=== PATIENT | male | born 1960 | race Caucasian/White ===

== ENCOUNTER 2016-08-19 16:00 | Inpatient (IN) | payer MEDICAID, OTHER ==
[2016-08-19] VITALS (13 sets, daily range): BP systolic 82–138; BP diastolic 66–98; PULSE 101–115; RESP 20; TEMP 96.2–97.8; O2SAT 85–100
[~2016-08-19] VITALS: Ht 152.4 cm; Wt 62.6 kg
[~2016-08-19 16:00] MED LIST: ADVAI250I PO; ALBU8I INH; LEVA750T PO; LISI5 PO; MAGN400 PO; METO25 PO; PRED10 PO; THIA100T PO
[2016-08-19] MEDS ORDERED: SODIUM CHLORIDE 0.9% FLUSH 10 ML FLUSH IVF PRN (16:15)
[2016-08-19] MEDS ORDERED: methylPREDNISolone SOD SUCC 125 MG/2 ML VIAL IVP ONE (16:15)
[2016-08-19] MEDS: RESP: ALBUTEROL 2.5 MG/IPRATROPIUM 0.5 MG NEB (SCH) INH (16:22)
[2016-08-19 16:25] LABS: BASOPHIL # 0.2 TH/MM3 (0-0.2); BASOPHIL % 2.1 % (0.0-2.0); EOSINOPHIL # 0.2 TH/MM3 (0-0.4); EOSINOPHIL % 2.3 % (0.0-4.0); HEMATOCRIT 46.2 % (39.0-51.0); LYMPH % 21.7 % (9.0-44.0); MEAN CELL VOLUME 93.8 FL (80.0-100.0); MEAN CORPUSCULAR HEMOGLOBIN 30.3 PG (27.0-34.0); MEAN CORPUSCULAR HGB CONC 32.3 % (32.0-36.0); MONO % 10.1 % (0.0-8.0); NEUT % 63.8 % (16.0-70.0); PLATELET COUNT 222 TH/MM3 (150-450); RED BLOOD COUNT 4.93 MIL/MM3 (4.50-5.90); RED CELL DISTRIBUTION WIDTH 15.5 % (11.6-17.2); WHITE BLOOD COUNT 9.3 TH/MM3 (4.0-11.0)
[2016-08-19 16:26] LABS: HEMO FLAGS DIFF FINAL
[2016-08-19] MEDS ORDERED: SODIUM CHLOR 0.9% 1000 ML INJ 1,000 ML IV ONE (16:30)
[2016-08-19 16:37] LABS: CHLORIDE 85 MEQ/L (98-107); POTASSIUM 3.8 MEQ/L (3.5-5.1); SODIUM (NA) 127 MEQ/L (136-145)
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
[2016-08-19 16:40] LABS: ANION GAP 10 MEQ/L (5-15); BICARBONATE 32.4 MEQ/L (21.0-32.0); BLOOD UREA NITROGEN 8 MG/DL (7-18); MAGNESIUM 1.3 MG/DL (1.5-2.5)
[2016-08-19 16:43] LABS: ALT (GPT) 119 U/L (12-78); AST (GOT) 49 U/L (15-37); GLOMERULAR FILTRATION RATE 163 ML/MIN (>89)
[2016-08-19 16:44] LABS: APTT (PATIENT) 28.4 SEC (24.3-30.1); INTERNATIONAL NORMALIZED RATIO 1.2 RATIO
[2016-08-19 16:45] LABS: TOTAL BILIRUBIN ADULT 0.7 MG/DL (0.2-1.0)
[2016-08-19 16:46] LABS: ALKALINE PHOSPHATASE 87 U/L (45-117); CREATINE KINASE 131 U/L (39-308)
[2016-08-19 16:51] LABS: BLOOD GAS BASE EXCESS 4.9 mmol/L (-2-2); BLOOD GAS CARBOXYHEMOGLOBIN 7.8 % (0-4); BLOOD GAS HCO3 30 mmol/L (22-26); BLOOD GAS METHEMOGLOBIN 0.9 % (0-2); BLOOD GAS O2 HGB SATURATION 75 % (90-100); BLOOD GAS OXYGEN CONTENT 14.5 Vol % (12.0-20.0); BLOOD GAS PCO2 58 mmHG (38-42); BLOOD GAS PO2 55 mmHG (61-120); BLOOD GAS TOTAL HGB 13.7 G/DL (12.0-16.0); CRITICAL VALUE YES; FIO2 21 %; OXYGEN DEVICE ROOM AIR; TEMP CORR TO 98.6
[2016-08-19 16:52] LABS: DRAW SITE LT BRACHIAL; NUMBER OF ARTERIAL PUNCTURES 2; STAT YES; ULNAR PULSE PRESENT
[2016-08-19 16:58] LABS: CKMB 3.7 NG/ML (0.5-3.6)
[2016-08-19 17:11] LABS: BLOOD, URINE NEG (NEG); GLUCOSE,URINE NEG (NEG); KETONE, URINE NEG (NEG); NITRITE,URINE NEG (NEG)
[2016-08-19 17:15] LABS: URINE COLOR YELLOW (YELLW/STRAW)
[2016-08-19 17:17] LABS: WBC, URINE 0-2 /hpf (0-5)
[2016-08-19 17:18] LABS: COMMENT (UR) CULT NOT INDICATED; CULTURE IF INDICATED CULT NOT INDICATED; SQUAMOUS EPITHELIAL CELL URINE 0-5 /hpf (0-5)
[2016-08-19 17:19] LABS: AMPHETAMINE, URINE NEG (NEG); BARBITURATES, URINE NEG (NEG); COCAINE, URINE NEG (NEG)
[2016-08-19] MEDS ORDERED: ASPIRIN 81 MG CHEW TAB PO ONE (17:45)
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
[2016-08-19] MEDS ORDERED: IOHEXOL 350 MG/ML 10 ML VIAL (for RAD DIAG) IV ONE (17:57)
--- NOTE | 2016-08-19 18:09 | RADHPO ---
EXAM DATE/TIME: 08/19/2016 17:40 [facility] COMPARISON: No previous studies available for comparison. INDICATIONS : Dyspnea. Bilateral lower extremity edema. Evaluate for pulmonary embolism. IV CONTRAST: 65 cc Omnipaque 350 (iohexol) IV RADIATION DOSE: 8.31 CTDIvol (mGy) MEDICAL HISTORY : Chronic obstructive pulmonary disease. SURGICAL HISTORY : None. ENCOUNTER: Initial ACUITY: 4 - 6 days PAIN SCALE: 0/10 LOCATION: chest TECHNIQUE: Volumetric scanning of the chest was performed using a pulmonary embolism protocol MIP images were re constructed. Using automated exposure control and adjustment of the mA and/or kV according to patien t size, radiation dose was kept as low as reasonably achievable to obtain optimal diagnostic quality images. FINDINGS: PULMONARY ARTERIES: No filling defects are seen in the pulmonary arteries through the segmental level. LUNGS: Severe baseline bullous emphysema. Patchy reticular interstitial disease and areas of pleural-parench ymal scarring. Mild basilar atelectasis. PLEURAE: Small bilateral pleural effusions. MEDIASTINUM: There is good visualization of the great vessels of the middle mediastinum. No evidence of mediastin al or hilar adenopathy/mass. MUSCULOSKELETAL: Within normal limits for patient age. MISCELLANEOUS: The visualized upper abdominal organs demonstrate no acute abnormality. CONCLUSION: No evidence of pulmonary embolism Patrick Gimenez MD on August 19, 2016 at 18:00 Board Certified Radiologist. This report was verified electronically.
--- NOTE | 2016-08-19 18:23 | RADHPO ---
EXAM DATE/TIME: 08/19/2016 17:54 [facility] COMPARISON: CHEST SINGLE AP, January 25, 2015, 18:44. INDICATIONS : Shortness of breath. Productive cough. MEDICAL HISTORY : Chronic obstructive pulmonary disease. Smoker. SURGICAL HISTORY : None. ENCOUNTER: Initial ACUITY: 3 days PAIN SCORE: 0/10 LOCATION: Bilateral chest FINDINGS: The heart size is normal. There does appear to be chronic linear density seen in the u pper lungs bilaterally. This is stable. No focal consolidation is seen. A significant effusion is no t seen. The bony structures are grossly intact. CONCLUSION: No acute abnormality is seen. There does appear to be chronic linear density in the u pper lungs. Patrick Ramos MD on August 19, 2016 at 18:10 Board Certified Radiologist. This report was verified electronically.
[2016-08-19] MEDS ORDERED: cefTRIAXone INJ 1,000 MG in SODIUM CHLORIDE 0.9% INJ 100 ML IV ONE (18:30)
[2016-08-19] MEDS ORDERED: NALOXONE HCL 0.4 MG/ML AMP IV PRN (18:45)
[2016-08-19] MEDS ORDERED: ACETAMINOPHEN 325 MG TAB PO PRN ×2 (18:45)
[2016-08-19] MEDS ORDERED: SODIUM CHLORIDE 0.9% FLUSH 10 ML FLUSH IV FLUSH PRN (18:45)
[2016-08-19] MEDS ORDERED: FLUMAZENIL 0.5 MG/5 ML VIAL IV PUSH PRN (19:00)
[2016-08-19] MEDS ORDERED: LORazepam 2 MG TAB PO PRN (19:00)
[2016-08-19] MEDS ORDERED: LORazepam 1 MG TAB PO PRN (19:00)
[2016-08-19] MEDS ORDERED: FUROSEMIDE 40 MG/4 ML VIAL IV PUSH ONE (19:00)
[2016-08-19] MEDS ORDERED: LORazepam 2 MG/ML VIAL IV PUSH PRN ×2 (19:00)
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
[2016-08-19] MEDS: AZITHROMYCIN INJ 500 MG in SODIUM CHLOR 0.9% 250 ML INJ 250 ML IV SCH (19:31)
[2016-08-19] MEDS: MAGNESIUM SULFATE 1 GM PREMIX 100 ML IV SCH ×2 (19:42→20:53)
[2016-08-19] MEDS: THIAMINE HCL 100 MG TAB PO SCH (19:47)
[2016-08-19] MEDS: ENOXAPARIN SODIUM 40 MG/0.4 ML SYRINGE SQ SCH (19:47)
[2016-08-19] MEDS: FOLIC ACID 1 MG TAB PO SCH (19:47)
[2016-08-19] MEDS: MULTIVITAMIN TAB PO SCH (19:47)
[2016-08-19 22:00] LABS: CHLORIDE 87 MEQ/L (98-107); POTASSIUM 3.1 MEQ/L (3.5-5.1); SODIUM (NA) 131 MEQ/L (136-145)
[2016-08-19 22:03] LABS: ANION GAP 9 MEQ/L (5-15); BICARBONATE 35.1 MEQ/L (21.0-32.0); BLOOD UREA NITROGEN 6 MG/DL (7-18)
[2016-08-19 22:06] LABS: GLOMERULAR FILTRATION RATE 150 ML/MIN (>89)
[2016-08-19] MEDS: methylPREDNISolone SOD SUCC 40 MG/1 ML VIAL IV PUSH SCH (22:08)
[2016-08-19] MEDS: SODIUM CHLORIDE 0.9% FLUSH 10 ML FLUSH IV FLUSH SCH (22:08)
[2016-08-19 22:50] LABS: HDL CHOLESTEROL 68.8 MG/DL (40.0-60.0); LDL CHOLESTEROL 66 MG/DL (0-99)
[2016-08-20] VITALS (8 sets, daily range): BP systolic 111–138; BP diastolic 78–102; PULSE 99–108; RESP 18–20; TEMP 96–97.4; O2SAT 89–98
[2016-08-20] MEDS: methylPREDNISolone SOD SUCC 40 MG/1 ML VIAL IV PUSH SCH ×2 (05:37→23:05)
[2016-08-20 06:05] LABS: AUTOMATED NEUTROPHIL # 1.8 TH/MM3 (1.8-7.7); BASOPHIL % 0.8 % (0.0-2.0); EOSINOPHIL % 0.9 % (0.0-4.0); HEMATOCRIT 48.1 % (39.0-51.0); HEMO FLAGS DIFF FINAL; LYMPH % 14.9 % (9.0-44.0); LYMPHOCYTE # 0.4 TH/MM3 (1.0-4.8); MEAN CELL VOLUME 94.3 FL (80.0-100.0); MEAN CORPUSCULAR HEMOGLOBIN 30.4 PG (27.0-34.0); MEAN CORPUSCULAR HGB CONC 32.2 % (32.0-36.0); MONO % 2.4 % (0.0-8.0); PLATELET COUNT 191 TH/MM3 (150-450); RED CELL DISTRIBUTION WIDTH 15.1 % (11.6-17.2); WHITE BLOOD COUNT 2.4 TH/MM3 (4.0-11.0)
[2016-08-20 06:13] LABS: CHLORIDE 88 MEQ/L (98-107); POTASSIUM 3.8 MEQ/L (3.5-5.1); SODIUM (NA) 133 MEQ/L (136-145)
[2016-08-20 06:18] LABS: ANION GAP 8 MEQ/L (5-15); BICARBONATE 37.2 MEQ/L (21.0-32.0); BLOOD UREA NITROGEN 8 MG/DL (7-18); MAGNESIUM 1.4 MG/DL (1.5-2.5)
[2016-08-20 06:21] LABS: ALT (GPT) 110 U/L (12-78); AST (GOT) 38 U/L (15-37); GLOMERULAR FILTRATION RATE 110 ML/MIN (>89)
[2016-08-20 06:23] LABS: TOTAL BILIRUBIN ADULT 0.6 MG/DL (0.2-1.0)
[2016-08-20 06:24] LABS: ALKALINE PHOSPHATASE 96 U/L (45-117)
[2016-08-20] MEDS: RESP: ALBUTEROL 2.5 MG/IPRATROPIUM 0.5 MG NEB (PRN) NEB ×3 (07:29→19:43)
[2016-08-20 08:04] LABS: HEMOGLOBIN A1a 1.5 %; HEMOGLOBIN A1b 1.5 %; HEMOGLOBIN Ao 84.4 %; HEMOGLOBIN LA1C 2.2 %; HEMOGLOBIN P3 5.2 %
--- NOTE | 2016-08-20 08:08 | MB ---
cc: ARTURO BELL MD DATE OF CONSULTATION: 08/20/2016 REASON FOR CONSULTATION CHF and elevated troponin. HISTORY OF PRESENT ILLNESS The patient is a pleasant 56-year-old gentleman who denies any cardiac history though from the chart I do see an echocardiogram from July 2014 showing a reduced ejection fraction of 30-35%. The patient presented with several days of bilateral lower extremity edema as well as pain. He was felt to be in clinical congestive heart failure and thus admitted. The patient has been given diuretics and is feeling somewhat better. He denies any particular shortness of breath though he does admit to fairly heavy tobacco use. He denies any chest pain now or previously, no lightheadedness, dizziness or syncope. PAST MEDICAL HISTORY 1. Apparent cardiomyopathy by echocardiogram July 2014 with an ejection fraction of 30-35% at that time. 2. Tobacco abuse. 3. Alcohol abuse. 4. Seizure disorder. MEDICATIONS Current medications: 1. Levaquin. 2. Lasix 20 mg IV b.i.d. 3. Solu-Medrol. 4. Lovenox 40 mg subcu q.24h. 5. Thiamine. 6. Folate. 7. Azithromycin. ALLERGIES No known drug allergies. PHYSICAL EXAMINATION VITAL SIGNS: Afebrile. Pulse 99, respiratory rate 20, BP 138/102, satting 92 on 2 liters. GENERAL: In general a pleasant, somewhat disheveled-appearing gentleman in no distress. NECK: No JVD. LUNGS: Decreased breath sounds in all garrison with scattered wheezes. CARDIOVASCULAR: Distant heart sounds. Regular rate and rhythm. No significant murmurs appreciated. ABDOMEN: Benign. EXTREMITIES: Trace to 1+ edema bilaterally. LABORATORY DATA White count 2.4, hematocrit 48.1, platelets 191. Sodium 133, potassium 3.8, chloride 88, bicarb 37.2, BUN 8, creatinine 0.73, glucose 195. Troponin 0.10. BNP is 2624. D-dimer was elevated. Ethyl alcohol was 225. IMAGING CTA of the chest showed no evidence of pulmonary embolism. EKG EKG shows sinus tachycardia with anterolateral T-wave changes possibly due to ischemia. IMPRESSION CHF. Patient with an apparently previously documented cardiomyopathy, presents with an acute on chronic systolic CHF exacerbation complicated by ongoing alcohol use. He does not appear particularly decompensated at this time following initial diuresis. I will increase his IV diuretics slightly to 40 mg IV b.i.d. for the next day or so. Will repeat an echocardiogram to see if his ejection fraction has changed over the last couple of years and get a nuclear stress test to evaluate for any signs of ischemia given his abnormal EKG, though certainly he may have an alcoholic/nonischemic cardiomyopathy. I will begin him on low-dose carvedilol and lisinopril as well given the presumed reduced ejection fraction seen previously. The elevated troponin is an expected finding in congestive heart failure and is not consistent with acute coronary syndrome in the absence chest pain, but I will have him undergo the nuclear stress test as detailed above. Further recommendations based on the above testing. Thank you again for the opportunity to participate in this patient's care. MD HEVER Kramer/DELORES /7:46 AM :55 AM
--- NOTE | 2016-08-20 08:53 | EKG ---
Date Performed: 08/19/2016 Time Performed: 16:13:04 PTAGE: 56 years EKG: Sinus tachycardia Right axis deviation Right ventricular hypertrophy Septal T wave changes may be due to hypertrophy and/or ischemia Abnormal ECG PREVIOUS TRACING : 01/16/2015 19.37 DOCTOR: Umer Toussaint Interpretating Date/Time 08/20/2016 08:50:55
[2016-08-20] MEDS ORDERED: FUROSEMIDE 20 MG/2 ML VIAL IV PUSH SCH (09:00)
[2016-08-20] MEDS: LISINOPRIL 5 MG TAB PO SCH (09:52)
[2016-08-20] MEDS: THIAMINE HCL 100 MG TAB PO SCH (09:52)
[2016-08-20] MEDS: MULTIVITAMIN TAB PO SCH (09:52)
[2016-08-20] MEDS: FOLIC ACID 1 MG TAB PO SCH (09:52)
[2016-08-20] MEDS: CARVEDILOL 3.125 MG TAB PO SCH ×2 (09:53→23:05)
[2016-08-20] MEDS: SODIUM CHLORIDE 0.9% FLUSH 10 ML FLUSH IV FLUSH SCH ×2 (09:53→21:00)
[2016-08-20] MEDS: FUROSEMIDE 20 MG/2 ML VIAL IV PUSH SCH ×2 (09:54→18:45)
[2016-08-20] MEDS ORDERED: POTASSIUM CHLORIDE 25 MEQ EFFERVESCENT TAB PO ONE (10:15)
--- NOTE | 2016-08-20 10:27 | HHI.PR ---
Subjective Remarks The patient says he feels a little bit better. He says the breathing treatment might have helped. He wanted to eat something. He was unsure why he was not able to eat. He did not know he was going for a stress test. Objective Vitals Vital Signs Date Time Temp Pulse Resp B/P Pulse Ox O2 Delivery O2 Flow Rate FiO2 08/20/16 08:38 96.2 107 18 129/94 90 08/20/16 07:31 92 21 08/20/16 04:00 97.4 99 20 138/102 98 Automatic Cuff 08/19/16 22:00 94 Nasal Cannula 2.00 08/19/16 21:56 100 Nasal Cannula 2.00 08/19/16 21:30 96.2 101 20 134/95 100 08/19/16 20:59 100 Nasal Cannula 2 08/19/16 20:28 97 Nasal Cannula 3.00 08/19/16 19:19 108 138/98 100 Nasal Cannula 2 08/19/16 17:02 96 High Flow Nasal Cannula 2.00 08/19/16 17:02 106 20 112/81 96 Nasal Cannula 2 08/19/16 16:47 106 20 107/78 99 Nasal Cannula 2 08/19/16 16:45 85 21 08/19/16 16:44 108 20 88/71 96 Nasal Cannula 2 08/19/16 16:41 97.7 109 20 98/76 96 Nasal Cannula 2 08/19/16 16:32 112 20 89/76 93 Nasal Cannula 2 08/19/16 16:18 114 20 87/76 96 Nasal Cannula 2 08/19/16 16:13 95 Nasal Cannula 2 08/19/16 16:13 95 Nasal Cannula 2 08/19/16 16:07 20 95 Nasal Cannula 2 08/19/16 16:05 97.8 115 20 82/66 95 I/O 08/19/16 08/19/16 08/19/16 08/20/16 08/20/16 08/20/16 07:00 15:00 23:00 07:00 15:00 23:00 Intake Total 450 ml 240 ml Output Total 550 ml Balance -100 ml 240 ml Intake Oral 240 ml IV Total 450 ml Output Urine Total 550 ml # Voids 2 1 # Bowel Movements 0 Result Diagram: 08/20/16 0530 08/20/[address] Angiography 08/19/16 1656 Signed Impressions: Service Date/Time: Friday, August 19, 2016 17:40 - CONCLUSION: No evidence of pulmonary embolism Patrick Gimenez MD Chest X-Ray 08/19/16 1610 Signed Impressions: Service Date/Time: Friday, August 19, 2016 17:54 - CONCLUSION: No acute abnormality is seen. There does appear to be chronic linear density in the upper lungs. Patrick Ramos MD Lower Extremity Ultrasound 08/19/16 0000 Signed Impressions: Service Date/Time: Friday, August 19, 2016 17:20 - CONCLUSION: Normal examination. Patrick Gimenez MD Objective Remarks GENERAL: No apparent distress, appears much older than stated age. SKIN: Focused skin assessment warm/dry. HEAD: Atraumatic. Normocephalic. EYES: Pupils equal and round. No scleral icterus. No injection or drainage. ENT: No nasal bleeding or discharge. Mucous membranes pink and moist. NECK: Trachea midline. No JVD. CARDIOVASCULAR: Tachycardic. No murmur appreciated. RESPIRATORY: Patient with diffuse wheezing, improved. GASTROINTESTINAL: Abdomen soft, slightly tender, nondistended. Hepatic and splenic margins not palpable. MUSCULOSKELETAL: No obvious deformities. No clubbing. No cyanosis. Patient with 1-2+ pedal edema. Pedal pulses intact. NEUROLOGICAL: Awake and alert. No obvious cranial nerve deficits. Motor grossly within normal limits. Normal speech. PSYCHIATRIC: Appropriate mood and affect; insight and judgment normal. Medications and IVs Current Medications Medications (Trade) Dose Ordered Sig/Missy Route Start Time Stop Time Status Last Admin (Zithromax Inj/ NS 250 ml Inj) 250 ml @ 250 mls/hr Q24H IV 08/19/16 18:30 08/19/16 19:31 (NS Flush) 2 ml UNSCH PRN IV FLUSH 08/19/16 18:45 (NS Flush) 2 ml BID IV FLUSH 08/19/16 21:00 08/20/16 09:53 (Tylenol) 650 mg Q4H PRN PO 08/19/16 18:45 08/20/16 05:51 (Tylenol) 650 mg Q6H PRN PO 08/19/16 18:45 (Narcan Inj) 0.4 mg UNSCH PRN IV 08/19/16 18:45 (Romazicon Inj) 0.2 mg Q1M PRN IV PUSH 08/19/16 19:00 (Ativan) 1 mg Q4H PRN PO 08/19/16 19:00 (Ativan) 2 mg Q2H PRN PO 08/19/16 19:00 (Ativan Inj) 2 mg Q1H PRN IV PUSH 08/19/16 19:00 (Ativan Inj) 2 mg Q15M PRN IV PUSH 08/19/16 19:00 (Vitamin B1) 100 mg DAILY PO 08/19/16 19:00 08/20/16 09:52 (Folate) 1 mg DAILY PO 08/19/16 19:00 08/20/16 09:52 (Theragran) 1 tab DAILY PO 08/19/16 19:00 08/20/16 09:52 (Lovenox Inj) 40 mg Q24H SQ 08/19/16 20:00 08/19/16 19:47 Methylprednisolone Sodium Succinate 40 mg 40 mg Q8HR IV PUSH 08/19/16 22:00 08/20/16 05:37 (Levaquin 750 Mg Premix Inj) 150 ml @ 100 mls/hr Q24H IV 08/20/16 17:00 (Lasix Inj) 40 mg BID@09,18 IV PUSH 08/20/16 09:00 08/20/16 09:54 (Coreg) 3.125 mg Q12HR PO 08/20/16 09:00 08/20/16 09:53 (Prinivil) 5 mg DAILY PO 08/20/16 09:00 08/20/16 09:52 Potassium Bicarb/ Potassium Chloride 25 meq 25 meq ONCE ONCE PO 08/20/16 10:15 08/20/16 10:16 (Magnesium Sulfate 1 Gm Premix) 100 ml @ 100 mls/hr Q1H IV 08/20/16 10:15 08/20/16 12:14 A/P Assessment and Plan Acute CHF/ Elevated troponin The patient presents with lower extremity edema, abdominal distention and is found to have a BNP over 2000. Troponin peaked at 0.16. The patient denies chest pain or shortness of breath. Troponin elevation likely demand secondary to heart failure. EKG with tachycardia but no acute ischemia. Lower extremity duplex negative for DVT. Appreciate cardiology consultation. LDL was 66. - Diuresis with Lasix 40 mg IV twice a day. - Monitor on telemetry. - Check an echocardiogram. - Check a hemoglobin A1c. - stress test per cardiology. - Coreg and lisinopril was started. COPD The patient has been requiring oxygen in the emergency department. He continues to smoke heavily. CT of the chest without evidence of pulmonary embolism. He received antibiotics in the emergency department. - Oxygen and nebs as needed. - Incentive spirometry. - Encourage ambulation. - Physical therapy. - continue Solumedrol and Levaquin. - smoking cessation instruction. Hyponatremia Chronic. S/t alcohol intake and decreased PO intake. - diurese. - fluid restriction. - follow BMP. Improved. Alcohol abuse The pt drinks all day long. Has had alcohol withdrawal seizures x 4. - seizure precautions. - CIWA protocol. - cessation instruction. Hypomagnesemia Likely secondary to alcohol abuse and decreased by mouth intake of other foods. - Replete with magnesium sulfate. - Check phosphorus level. Leukopenia WBC count decreased significantly overnight. May be lab error. - repeat CBC. PPx: Lovenox. Discharge Planning Awaiting clinical improvement. Sunny Jerez DO August 20, 2016 10:27
[2016-08-20] MEDS ORDERED: REGADENOSON INJ 0.4 MG/5 ML SYR IV ONE (12:34)
[2016-08-20] MEDS: MAGNESIUM SULFATE 1 GM PREMIX 100 ML IV SCH ×2 (13:31→16:19)
--- NOTE | 2016-08-20 13:41 | RADHPO ---
EXAM DATE/TIME: 08/20/2016 11:57 [facility] COMPARISON: No previous studies available for comparison. INDICATIONS : Cardiomyopathy with two days of leg swelling. Abnormal EKG. Congestive heart failure. DOSE: 26.5 mCi Tc99m Myoview at stress. 8.6 mCi Tc99m Myoview at rest. 0.4 mg Lexiscan STRESS SYMPTOMS: None noted. EJECTION FRACTION: 37% MEDICAL HISTORY : Chronic obstructive pulmonary disease. SURGICAL HISTORY : None. ENCOUNTER: Initial ACUITY: 2 days PAIN SCALE: 5/10 LOCATION: chest Bilateral legs. TECHNIQUE: The patient underwent pharmacologic stress with infusion of prescribed dose. Continuous ECG tracing was monitored during stress. Gated SPECT imaging was performed after stress and conventional SPECT i maging was performed at rest. The examination was performed on a SPECT/CT scanner, both attenuation and non-corrected datasets were reviewed. FINDINGS: DISTRIBUTION: The maximum perfused segment at stress is in the lateral wall. PERFUSION STUDY: The pattern of perfusion at stress is within normal limits. GATED STUDY: There is intact wall motion and thickening without hypokinetic or dyskinetic segments. CONCLUSION: No reversible perfusion defect to suggest stress-induced myocardial ischemia is identified. RISK CATEGORY: Low (<1% Annual Mortality Rate) Rudolph Park MD on August 20, 2016 at 13:38 Board Certified Radiologist. This report was verified electronically.
[2016-08-20 14:27] LABS: AUTOMATED NEUTROPHIL # 4.4 TH/MM3 (1.8-7.7); BASOPHIL # 0.1 TH/MM3 (0-0.2); BASOPHIL % 1.9 % (0.0-2.0); EOSINOPHIL % 0.6 % (0.0-4.0); LYMPH % 11.7 % (9.0-44.0); LYMPHOCYTE # 0.7 TH/MM3 (1.0-4.8); MEAN CELL VOLUME 94.1 FL (80.0-100.0); MEAN CORPUSCULAR HGB CONC 32.9 % (32.0-36.0); MONO % 8.4 % (0.0-8.0); NEUT % 77.4 % (16.0-70.0); PLATELET COUNT 191 TH/MM3 (150-450); RED CELL DISTRIBUTION WIDTH 15.3 % (11.6-17.2); WHITE BLOOD COUNT 5.7 TH/MM3 (4.0-11.0)
[2016-08-20 14:34] LABS: HEMO FLAGS DIFF FINAL
--- NOTE | 2016-08-20 16:48 | EC ---
Study Study Date:08/20/2016 STUDY CONCLUSIONS SUMMARY - Procedure narrative: Transthoracic echocardiography. Image quality was poor. Scanning was performed from the parasternal, apical, and subcostal acoustic windows. - Left ventricle: The cavity size was normal. Wall thickness was normal. Systolic function was normal. The estimated ejection fraction was in the range of 55% to 60%. Although no diagnostic regional wall motion abnormality was identified, this possibility cannot be completely excluded on the basis of this study. - Right ventricle: The cavity size was possibly mildly enlarged. Wall thickness was normal. Systolic function was low normal. - Right atrium: The atrium was possibly mild to moderately dilated. - Tricuspid valve: Trace to mild regurgitation. - Pulmonary arteries: PA peak pressure: 35mm Hg (S). If LV function is below 40, please consider prescribing an ACEI or ARB or document rationale for non-use. PROCEDURE DATA STUDY STATUS: Elective. Procedure: Transthoracic echocardiography. Image quality was poor. Scanning was performed from the parasternal, apical, and subcostal acoustic windows. Study completion: The patient tolerated the procedure well. Transthoracic echocardiography. M-mode, complete 2D, complete spectral Doppler, and color Doppler. Height: Height: 67in. Weight: Weight: 153.7lb. Body mass index: BMI: 24.1kg/m^2. Body surface area: BSA: 1.81m^2. Patient status: Inpatient. CARDIAC ANATOMY LEFT VENTRICLE: The cavity size was normal. Wall thickness was normal. Systolic function was normal. The estimated ejection fraction was in the range of 55% to 60%. Although no diagnostic regional wall motion abnormality was identified, this possibility cannot be completely excluded on the basis of this study. AORTIC VALVE: Trileaflet; normal thickness leaflets. Doppler: Transvalvular velocity was within the normal range. There was no stenosis. No regurgitation. Indexed valve area: 1.61cm^2/m^2 (Vmax). AORTA: Aortic root: The aortic root was normal in size. MITRAL VALVE: Structurally normal valve. Doppler: Transvalvular velocity was within the normal range. There was no evidence for stenosis. No regurgitation. LEFT ATRIUM: The atrium was normal in size. RIGHT VENTRICLE: The cavity size was possibly mildly enlarged. Wall thickness was normal. Systolic function was low normal. PULMONIC VALVE: Doppler: Transvalvular velocity was within the normal range. There was no evidence for stenosis. No regurgitation. TRICUSPID VALVE: Structurally normal valve. Doppler: Transvalvular velocity was within the normal range. Trace to mild regurgitation. PULMONARY ARTERY: The main pulmonary artery was normal-sized. RIGHT ATRIUM: The atrium was possibly mild to moderately dilated. PERICARDIUM: There was no pericardial effusion. SYSTEMIC VEINS: Inferior vena cava: The vessel was normal in size. Patient weight: 153.7lb _Ejection fraction:_ 65-75% _Fractional shortening:_ 32% up to 5Kg 5-11.5Kg 11.6-22.9Kg 23-45Kg 45-57Kg Aortic Root 7-13 <17 13-22 17-27 17-27 LA diam 6-13 <23 24-38 33-47 37-40 RVID 10-17 7-15 7-15 7-18 8-17 LVIDd 12-22 <32 24-38 33-47 37-40 LVPW 2-4 3-6 5-7 6-8 7-8 IVS 2-4 3-6 5-7 6-8 7-8 BASIC MEASUREMENTS ADULT NORMAL Left ventricle LV internal dimension, ED, chordal *41.2 mm 43-52 level, PLAX LV internal dimension, ES, chordal 35.3 mm 23-38 level, PLAX Fractional shortening, chordal level, *14 % >29 PLAX LV posterior wall thickness, ED 10.5 mm IVS/LVPW ratio, ED 1.12 <1.3 Ventricular septum Septal thickness, ED 11.8 mm Aortic valve Leaflet separation 21 mm 15-26 BASIC MEASUREMENTS ADULT NORMAL Aortic valve Leaflet separation 21 mm 15-26 Aorta Root diameter, ED 27 mm 20-37 Left atrium Anterior-posterior dimension, ES 35 mm 19-40 Anterior-posterior dimension index, ES 1.93 cm/m^2 <2.2 LA/aortic root ratio 1.3 DOPPLER MEASUREMENTS ADULT NORMAL Main pulmonary artery Pressure, S *35 mm Hg =30 Aortic valve Peak velocity, S 82.8 cm/s Valve area index, Vmax 1.61 cm^2/m^2 Tricuspid valve Regurgitant peak velocity 258 cm/s Peak RV-RA gradient, S 27 mm Hg Maximal regurgitant velocity 258 cm/s Systemic veins Estimated CVP 10 mm Hg Right ventricle RV pressure, S *37 mm Hg <30 Pulmonic valve Peak velocity, S 70.6 cm/s LEGEND: Mean values are shown as u=mean value. Asterisk (*) piña values outside specified normal range. Prepared and signed by Leoncio Lambert [id number]
[2016-08-20] MEDS: LEVOFLOXACIN 750 MG PREMIX INJ 150 ML IV SCH (18:41)
[2016-08-20] MEDS: AZITHROMYCIN INJ 500 MG in SODIUM CHLOR 0.9% 250 ML INJ 250 ML IV SCH (23:11)
[2016-08-20] MEDS: ENOXAPARIN SODIUM 40 MG/0.4 ML SYRINGE SQ SCH (23:12)
[2016-08-21] VITALS (8 sets, daily range): BP systolic 104–135; BP diastolic 76–100; PULSE 90–108; RESP 18–21; TEMP 95.8–98; O2SAT 94–100
[2016-08-21 06:47] LABS: HEMATOCRIT 43.1 % (39.0-51.0); MEAN CELL VOLUME 94.8 FL (80.0-100.0); MEAN CORPUSCULAR HEMOGLOBIN 31.3 PG (27.0-34.0); PLATELET COUNT 176 TH/MM3 (150-450); RED BLOOD COUNT 4.54 MIL/MM3 (4.50-5.90); RED CELL DISTRIBUTION WIDTH 15.4 % (11.6-17.2); REVIEW FLAG FINAL
[2016-08-21 06:53] LABS: POTASSIUM 3.9 MEQ/L (3.5-5.1)
[2016-08-21 06:58] LABS: BICARBONATE 40.9 MEQ/L (21.0-32.0); MAGNESIUM 1.3 MG/DL (1.5-2.5)
--- NOTE | 2016-08-21 07:50 | PD.CARD.PN ---
Subjective Subjective Remarks No cp/sob, legs improved. Objective Medications Administered Medications Medications (Trade) Dose Ordered Sig/Missy Route PRN Reason Start Time Stop Time Status Last Admin Dose Admin Azithromycin/ Sodium Chloride (Zithromax Inj/ NS 250 ml Inj) 250 ml @ 250 mls/hr Q24H IV 08/19/16 18:30 08/20/16 23:11 Sodium Chloride (NS Flush) 2 ml BID IV FLUSH 08/19/16 21:00 08/20/16 21:00 Acetaminophen (Tylenol) 650 mg Q4H PRN PO TEMP > 100.4 08/19/16 18:45 08/20/16 05:51 Thiamine HCl (Vitamin B1) 100 mg DAILY PO 08/19/16 19:00 08/20/16 09:52 Folic Acid (Folate) 1 mg DAILY PO 08/19/16 19:00 08/20/16 09:52 Multivitamins (Theragran) 1 tab DAILY PO 08/19/16 19:00 08/20/16 09:52 Enoxaparin Sodium 40 mg 40 mg Q24H SQ 08/19/16 20:00 08/20/16 23:12 Levofloxacin/ Dextrose (Levaquin 750 Mg Premix Inj) 150 ml @ 100 mls/hr Q24H IV 08/20/16 17:00 08/20/16 18:41 Furosemide (Lasix Inj) 40 mg BID@09,18 IV PUSH 08/20/16 09:00 08/20/16 18:45 Carvedilol (Coreg) 3.125 mg Q12HR PO 08/20/16 09:00 08/20/16 23:05 Lisinopril (Prinivil) 5 mg DAILY PO 08/20/16 09:00 08/20/16 09:52 Methylprednisolone Sodium Succinate (SoluMEDROL INJ) 40 mg BID IV PUSH 08/20/16 21:00 08/20/16 23:05 Vital Signs / I&O Vital Signs Date Time Temp Pulse Resp B/P Pulse Ox O2 Delivery O2 Flow Rate FiO2 08/21/16 04:00 96.9 96 20 130/100 97 Automatic Cuff 08/21/16 00:00 96.3 102 20 106/83 100 Manual Cuff/Auscultation 08/20/16 20:00 96.0 108 20 111/78 96 08/20/16 19:40 96 Nasal Cannula 2.00 08/20/16 16:26 96.3 105 18 127/90 91 08/20/16 16:08 94 Nasal Cannula 2.00 08/20/16 16:03 89 21 08/20/16 09:45 92 Nasal Cannula 2.00 08/20/16 08:38 96.2 107 18 129/94 90 I/O 08/20/16 08/20/16 08/20/16 08/21/16 08/21/16 08/21/16 07:00 15:00 23:00 07:00 15:00 23:00 Intake Total 240 ml 240 ml Balance 240 ml 240 ml Intake Oral 240 ml 240 ml # Voids 1 2 # Bowel Movements 0 0 Physical Exam GENERAL: This is a well-nourished, well-developed patient, in no apparent distress. CARDIOVASCULAR: Regular rate and rhythm without murmurs, gallops, or rubs. RESPIRATORY: Clear to auscultation. Breath sounds equal bilaterally. No wheezes , rales, or rhonchi. GASTROINTESTINAL: Abdomen soft, non-tender, nondistended. Normal active bowel sounds MUSCULOSKELETAL: Extremities without clubbing, cyanosis, or edema. NEURO: Alert & Oriented x4 to person, place, time, situation. Moves all ext x4 Laboratory Laboratory Tests Test 08/20/16 08/21/16 14:15 05:55 White Blood Count 5.7 TH/MM3 9.0 TH/MM3 Red Blood Count 5.00 MIL/MM3 4.54 MIL/MM3 Hemoglobin 15.5 GM/DL 14.2 GM/DL Hematocrit 47.0 % 43.1 % Mean Corpuscular Volume 94.1 FL 94.8 FL Mean Corpuscular Hemoglobin 31.0 PG 31.3 PG Mean Corpuscular Hemoglobin 32.9 % 33.0 % Concent Red Cell Distribution Width 15.3 % 15.4 % Platelet Count 191 TH/MM3 176 TH/MM3 Mean Platelet Volume 7.8 FL 7.7 FL Neutrophils (%) (Auto) 77.4 % Lymphocytes (%) (Auto) 11.7 % Monocytes (%) (Auto) 8.4 % Eosinophils (%) (Auto) 0.6 % Basophils (%) (Auto) 1.9 % Neutrophils # (Auto) 4.4 TH/MM3 Lymphocytes # (Auto) 0.7 TH/MM3 Monocytes # (Auto) 0.5 TH/MM3 Eosinophils # (Auto) 0.0 TH/MM3 Basophils # (Auto) 0.1 TH/MM3 CBC Comment DIFF FINAL Differential Comment Sodium Level 137 MEQ/L Potassium Level 3.9 MEQ/L Chloride Level 89 MEQ/L Carbon Dioxide Level 40.9 MEQ/L Anion Gap 7 MEQ/L Blood Urea Nitrogen 12 MG/DL Creatinine 0.59 MG/DL Estimat Glomerular Filtration 141 ML/MIN Rate Random Glucose 131 MG/DL Calcium Level 8.2 MG/DL Magnesium Level 1.3 MG/DL Imaging Last Impressions Myocardial Perfusion Scan Nuc Med 08/20/16 0000 Signed Impressions: Service Date/Time: Saturday, August 20, 2016 11:57 - CONCLUSION: No reversible perfusion defect to suggest stress-induced myocardial ischemia is identified. RISK CATEGORY: Low (<1%% Annual Mortality Rate) Rudolph Park MD CT Angiography 08/19/16 1656 Signed Impressions: Service Date/Time: Friday, August 19, 2016 17:40 - CONCLUSION: No evidence of pulmonary embolism Patrick Gimenez MD Chest X-Ray 08/19/16 1610 Signed Impressions: Service Date/Time: Friday, August 19, 2016 17:54 - CONCLUSION: No acute abnormality is seen. There does appear to be chronic linear density in the upper lungs. Patrick Ramos MD Lower Extremity Ultrasound 08/19/16 0000 Signed Impressions: Service Date/Time: Friday, August 19, 2016 17:20 - CONCLUSION: Normal examination. Patrick Gimenez MD Assessment and Plan Problem List: (1) Troponin level elevated Assessment and Plan: now s/p non-ischemic nuc stress, continue med mgt (2) Lower extremity edema Assessment and Plan: Improved, normal LVEF, changed IV lasix to low dose daily oral Assessment and Plan Doing well, will sign off at this time, please call with questions. Douglas Jones MD August 21, 2016 07:50
[2016-08-21] MEDS ORDERED: OXYGENTANK NAS.CANULA (08:53)
[2016-08-21] MEDS: THIAMINE HCL 100 MG TAB PO SCH (09:02)
[2016-08-21] MEDS: LISINOPRIL 5 MG TAB PO SCH (09:04)
[2016-08-21] MEDS: CARVEDILOL 3.125 MG TAB PO SCH (09:04)
[2016-08-21] MEDS: MULTIVITAMIN TAB PO SCH (09:04)
[2016-08-21] MEDS: FOLIC ACID 1 MG TAB PO SCH (09:04)
[2016-08-21] MEDS: POTASSIUM CHLORIDE 20 MEQ CONTROLLED RELEASE TAB PO SCH (09:04)
[2016-08-21] MEDS: FUROSEMIDE 20 MG TAB PO SCH (09:04)
[2016-08-21] MEDS: SODIUM CHLORIDE 0.9% FLUSH 10 ML FLUSH IV FLUSH SCH ×2 (09:05→20:29)
[2016-08-21] MEDS: methylPREDNISolone SOD SUCC 40 MG/1 ML VIAL IV PUSH SCH (09:05)
[2016-08-21] MEDS: MAGNESIUM SULFATE 1 GM PREMIX 100 ML IV SCH ×2 (09:08→10:32)
--- NOTE | 2016-08-21 09:44 | HHI.PR ---
Subjective Remarks The patient was resting in bed comfortably. He said that he has been coughing up mucus but that is chronic for him. He was breathing comfortably. He says his legs are less swollen but still somewhat tender. Objective Vitals Vital Signs Date Time Temp Pulse Resp B/P Pulse Ox O2 Delivery O2 Flow Rate FiO2 08/21/16 08:20 94 Nasal Cannula 2.00 08/21/16 04:00 96.9 96 20 130/100 97 Automatic Cuff 08/21/16 00:00 96.3 102 20 106/83 100 Manual Cuff/Auscultation 08/20/16 20:00 96.0 108 20 111/78 96 08/20/16 19:40 96 Nasal Cannula 2.00 08/20/16 16:26 96.3 105 18 127/90 91 08/20/16 16:08 94 Nasal Cannula 2.00 08/20/16 16:03 89 21 08/20/16 09:45 92 Nasal Cannula 2.00 I/O 08/20/16 08/20/16 08/20/16 08/21/16 08/21/16 08/21/16 07:00 15:00 23:00 07:00 15:00 23:00 Intake Total 240 ml 240 ml Balance 240 ml 240 ml Intake Oral 240 ml 240 ml # Voids 1 2 # Bowel Movements 0 0 Result Diagram: 08/21/16 0555 08/21/16 0555 Imaging Last Impressions Myocardial Perfusion Scan Nuc Med 08/20/16 0000 Signed Impressions: Service Date/Time: Saturday, August 20, 2016 11:57 - CONCLUSION: No reversible perfusion defect to suggest stress-induced myocardial ischemia is identified. RISK CATEGORY: Low (<1%% Annual Mortality Rate) Rudolph Park MD CT Angiography 08/19/16 1656 Signed Impressions: Service Date/Time: Friday, August 19, 2016 17:40 - CONCLUSION: No evidence of pulmonary embolism Patrick Gimenez MD Chest X-Ray 08/19/16 1610 Signed Impressions: Service Date/Time: Friday, August 19, 2016 17:54 - CONCLUSION: No acute abnormality is seen. There does appear to be chronic linear density in the upper lungs. Patrick Ramos MD Lower Extremity Ultrasound 08/19/16 0000 Signed Impressions: Service Date/Time: Friday, August 19, 2016 17:20 - CONCLUSION: Normal examination. Patrick Gimenez MD Objective Remarks GENERAL: No apparent distress, appears much older than stated age. SKIN: Focused skin assessment warm/dry. HEAD: Atraumatic. Normocephalic. EYES: Pupils equal and round. No scleral icterus. No injection or drainage. ENT: No nasal bleeding or discharge. Mucous membranes pink and moist. NECK: Trachea midline. No JVD. CARDIOVASCULAR: Tachycardic. No murmur appreciated. RESPIRATORY: Patient with diffuse wheezing, improved. GASTROINTESTINAL: Abdomen soft, slightly tender, nondistended. MUSCULOSKELETAL: No obvious deformities. No clubbing. No cyanosis. Patient with trace pedal edema. Pedal pulses intact. NEUROLOGICAL: Awake and alert. No obvious cranial nerve deficits. Motor grossly within normal limits. Normal speech. PSYCHIATRIC: Appropriate mood and affect; insight and judgment normal. Medications and IVs Current Medications Medications (Trade) Dose Ordered Sig/Missy Route Start Time Stop Time Status Last Admin (Zithromax Inj/ NS 250 ml Inj) 250 ml @ 250 mls/hr Q24H IV 08/19/16 18:30 08/20/16 23:11 (NS Flush) 2 ml UNSCH PRN IV FLUSH 08/19/16 18:45 (NS Flush) 2 ml BID IV FLUSH 08/19/16 21:00 08/21/16 09:05 (Tylenol) 650 mg Q4H PRN PO 08/19/16 18:45 08/20/16 05:51 (Tylenol) 650 mg Q6H PRN PO 08/19/16 18:45 (Narcan Inj) 0.4 mg UNSCH PRN IV 08/19/16 18:45 (Romazicon Inj) 0.2 mg Q1M PRN IV PUSH 08/19/16 19:00 (Ativan) 1 mg Q4H PRN PO 08/19/16 19:00 (Ativan) 2 mg Q2H PRN PO 08/19/16 19:00 (Ativan Inj) 2 mg Q1H PRN IV PUSH 08/19/16 19:00 (Ativan Inj) 2 mg Q15M PRN IV PUSH 08/19/16 19:00 (Vitamin B1) 100 mg DAILY PO 08/19/16 19:00 08/21/16 09:02 (Folate) 1 mg DAILY PO 08/19/16 19:00 08/21/16 09:04 (Theragran) 1 tab DAILY PO 08/19/16 19:00 08/21/16 09:04 Enoxaparin Sodium 40 mg 40 mg Q24H SQ 08/19/16 20:00 08/20/16 23:12 (Levaquin 750 Mg Premix Inj) 150 ml @ 100 mls/hr Q24H IV 08/20/16 17:00 08/20/16 18:41 (Coreg) 3.125 mg Q12HR PO 08/20/16 09:00 08/21/16 09:04 (Prinivil) 5 mg DAILY PO 08/20/16 09:00 08/21/16 09:04 (SoluMEDROL INJ) 40 mg BID IV PUSH 08/20/16 21:00 08/21/16 09:05 (Lasix) 20 mg DAILY PO 08/21/16 09:00 08/21/16 09:04 Potassium Chloride 20 meq 20 meq DAILY PO 08/21/16 09:00 08/21/16 09:04 (Magnesium Sulfate 1 Gm Premix) 100 ml @ 100 mls/hr Q1H IV 08/21/16 09:00 08/21/16 10:59 08/21/16 09:08 A/P Assessment and Plan Lower extremity edema/ Cirrhosis/ Elevated troponin The patient presents with lower extremity edema, abdominal distention and is found to have a BNP over 2000. Troponin peaked at 0.16. The patient denies chest pain or shortness of breath. Troponin elevation likely demand secondary to volume overload. EKG with tachycardia but no acute ischemia. Lower extremity duplex negative for DVT. Appreciate cardiology consultation. LDL was 66. A1c was 5.8%. Echo with normal EF. Stress test negative. Fluid overload likely secondary to cirrhosis. INR is elevated at 1.2 and albumin is low at 2.6. The pt drinks significant amounts of beer daily. - Lasix changed to 20 mg by mouth daily. - Monitor on telemetry. - liver US pending. - Aldactone started. COPD The patient has been requiring oxygen in the emergency department. He continues to smoke heavily. CT of the chest without evidence of pulmonary embolism. He received antibiotics in the emergency department. - Oxygen and nebs as needed. - Incentive spirometry. - Encourage ambulation. - Physical therapy. - continue Levaquin. - smoking cessation instruction. - switch Solumedrol to prednisone 20 mg BID. - Home oxygen walk test requested. Hyponatremia Chronic. S/t alcohol intake and decreased PO intake. - diurese. - fluid restriction. - follow BMP. Resolved. Alcohol abuse The pt drinks all day long. Has had alcohol withdrawal seizures x 4. - seizure precautions. - CIWA protocol. - cessation instruction. Hypomagnesemia Likely secondary to alcohol abuse and decreased by mouth intake of other foods. - Replete with magnesium sulfate and monitor. PPx: Lovenox. Discharge Planning Anticipate discharge home tomorrow if feeling well. Sunny Jerez DO August 21, 2016 09:44
[2016-08-21] MEDS: DOCUSATE SODIUM 100 MG CAP PO SCH ×2 (10:31→20:29)
[2016-08-21] MEDS: SPIRONOLACTONE 25 MG TAB PO SCH (10:31)
--- NOTE | 2016-08-21 13:27 | HHI.DCPOC ---
Discharge Care Plan Diagnosis: (1) COPD with exacerbation (2) Tobacco use (3) Alcohol use (4) Acute respiratory failure (5) Troponin level elevated Goals to Promote Your Health * To prevent worsening of your condition and complications * To maintain your health at the optimal level Directions to Meet Your Goals Take your medications as prescribed Follow your dietary instruction Follow activity as directed Keep your appointments as scheduled Take your immunizations and boosters as scheduled If your symptoms worsen call your PCP, if no PCP go to Urgent Care Center or Emergency Room Smoking is Dangerous to Your Health. Avoid second hand smoke Call the 24-hour hour crisis hotline for domestic abuse at Sunny Jerez DO August 21, 2016 13:27
--- NOTE | 2016-08-21 13:30 | HHI.FF ---
Face to Face Verification Diagnosis: (1) Alcohol use (2) Tobacco use (3) COPD with exacerbation (4) Acute respiratory failure (5) Troponin level elevated (6) Lower extremity edema Home Health Nursing Order: Medical education Signs/symptoms of disease process Oxygen administration education Medication education-adverse effect Nursing assessment with vital signs I have seen patient Marlon Perez on 08/21/16. My clinical findings support the need for the requested home health care services because: Ltd mobility - disease progression Patient has SOB Deconditioned w/ increased weakness Limited ability to care for self I certify that my clinical findings support that this patient is homebound because: Hx COPD- exertion dyspnea/weakness Unsteady gait/balance Unsafe to leave home unassisted Sunny Jerez DO August 21, 2016 13:29
[2016-08-21] MEDS: RESP: ALBUTEROL 2.5 MG/IPRATROPIUM 0.5 MG NEB (SCH) NEB ×2 (15:04→19:33)
[2016-08-21] MEDS: AZITHROMYCIN INJ 500 MG in SODIUM CHLOR 0.9% 250 ML INJ 250 ML IV SCH ×2 (16:46→18:42)
[2016-08-21] MEDS: LEVOFLOXACIN 750 MG PREMIX INJ 150 ML IV SCH (16:48)
--- NOTE | 2016-08-21 17:26 | EKG ---
Date Performed: 08/20/2016 Time Performed: 05:56:38 PTAGE: 56 years EKG: Sinus tachycardia Indeterminate axis Inferior and ant/septal ST-T changes may be due to benjamin cardial ischemia Abnormal ECG Compared to prior study of 08/19/2016, anterior T-wave changes are more prominent. Consider anterior ischemia. PREVIOUS TRACING : 08/19/2016 16.13 DOCTOR: Antoine Abbott Interpretating Date/Time 08/21/2016 17:24:32
[2016-08-21] MEDS: ENOXAPARIN SODIUM 40 MG/0.4 ML SYRINGE SQ SCH (20:29)
[2016-08-21] MEDS: predniSONE 20 MG TAB PO SCH (20:29)
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
[2016-08-22] VITALS (8 sets, daily range): BP systolic 113–150; BP diastolic 77–98; PULSE 98–107; RESP 17–20; TEMP 96.9–98.5; O2SAT 93–97
[2016-08-22 06:36] LABS: POTASSIUM 3.9 MEQ/L (3.5-5.1)
[2016-08-22 06:39] LABS: BICARBONATE 40.7 MEQ/L (21.0-32.0); MAGNESIUM 1.4 MG/DL (1.5-2.5)
[2016-08-22] MEDS: RESP: ALBUTEROL 2.5 MG/IPRATROPIUM 0.5 MG NEB (SCH) NEB ×3 (08:06→19:09)
[2016-08-22] MEDS: THIAMINE HCL 100 MG TAB PO SCH (08:26)
[2016-08-22] MEDS: FUROSEMIDE 20 MG TAB PO SCH (08:26)
[2016-08-22] MEDS: FOLIC ACID 1 MG TAB PO SCH (08:26)
[2016-08-22] MEDS: SPIRONOLACTONE 25 MG TAB PO SCH (08:26)
[2016-08-22] MEDS: POTASSIUM CHLORIDE 20 MEQ CONTROLLED RELEASE TAB PO SCH (08:26)
[2016-08-22] MEDS: MULTIVITAMIN TAB PO SCH (08:26)
[2016-08-22] MEDS: predniSONE 20 MG TAB PO SCH (08:26)
[2016-08-22] MEDS: DOCUSATE SODIUM 100 MG CAP PO SCH ×2 (08:26→20:30)
[2016-08-22] MEDS: SODIUM CHLORIDE 0.9% FLUSH 10 ML FLUSH IV FLUSH SCH ×2 (08:27→20:31)
--- NOTE | 2016-08-22 14:04 | HHI.PR ---
Subjective Remarks sob is improving denies fevers/chills denies cp vital signs stable - sating 94% on 2 liters nasal canula Objective Vitals Vital Signs Date Time Temp Pulse Resp B/P Pulse Ox O2 Delivery O2 Flow Rate FiO2 08/22/16 12:00 97.7 98 17 137/89 94 08/22/16 08:06 94 Nasal Cannula 2.00 08/22/16 08:00 97.5 101 18 145/98 93 08/22/16 00:00 96.9 99 18 113/77 96 08/21/16 20:00 95.8 108 18 108/82 96 08/21/16 19:35 95 Nasal Cannula 2.00 08/21/16 16:00 98.0 100 21 135/94 94 I/O 08/21/16 08/21/16 08/21/16 08/22/16 08/22/16 08/22/16 07:00 15:00 23:00 07:00 15:00 23:00 Intake Total 1000 ml 360 ml Output Total 400 ml Balance 1000 ml -40 ml Intake Oral 1000 ml 360 ml Output Urine Total 400 ml # Voids 5 # Bowel Movements 1 1 Result Diagram: 08/21/16 0555 08/22/16 0538 Imaging Last Impressions Liver Ultrasound 08/21/16 0000 Signed Impressions: Service Date/Time: August 20:26 - CONCLUSION: 1. Small liver with ascites. 2. Gallbladder wall thickening. This is nonspecific. It can be seen with hepatic disease. There is echogenic material without shadowing seen in the gallbladder fundus likely representing tumefactive sludge. 3. Bilateral pleural effusions. Patrick Ramos MD Myocardial Perfusion Scan Nuc Med 08/20/16 0000 Signed Impressions: Service Date/Time: Saturday, August 20, 2016 11:57 - CONCLUSION: No reversible perfusion defect to suggest stress-induced myocardial ischemia is identified. RISK CATEGORY: Low (<1%% Annual Mortality Rate) Rudolph Park MD CT Angiography 08/19/16 1656 Signed Impressions: Service Date/Time: Friday, August 19, 2016 17:40 - CONCLUSION: No evidence of pulmonary embolism Patrick Gimenez MD Chest X-Ray 08/19/16 1610 Signed Impressions: Service Date/Time: Friday, August 19, 2016 17:54 - CONCLUSION: No acute abnormality is seen. There does appear to be chronic linear density in the upper lungs. Patrick Ramos MD Lower Extremity Ultrasound 08/19/16 0000 Signed Impressions: Service Date/Time: Friday, August 19, 2016 17:20 - CONCLUSION: Normal examination. Patrick Gimenez MD Objective Remarks GENERAL: No apparent distress, appears much older than stated age. SKIN: Focused skin assessment warm/dry. HEAD: Atraumatic. Normocephalic. EYES: Pupils equal and round. No scleral icterus. No injection or drainage. ENT: No nasal bleeding or discharge. Mucous membranes pink and moist. NECK: Trachea midline. No JVD. CARDIOVASCULAR: Tachycardic. No murmur appreciated. RESPIRATORY: Patient with diffuse expiratory wheezing. no crackles or ronchi auscultated GASTROINTESTINAL: Abdomen soft, slightly tender, nondistended. MUSCULOSKELETAL: No obvious deformities. No clubbing. No cyanosis. Patient with trace pedal edema. Pedal pulses intact. NEUROLOGICAL: Awake and alert. No obvious cranial nerve deficits. Motor grossly within normal limits. Normal speech. PSYCHIATRIC: Appropriate mood and affect; insight and judgment normal. Procedures none Medications and IVs Current Medications Medications (Trade) Dose Ordered Sig/Missy Route Start Time Stop Time Status Last Admin (Zithromax Inj/ NS 250 ml Inj) 250 ml @ 250 mls/hr Q24H IV 08/19/16 18:30 08/21/16 18:42 (NS Flush) 2 ml UNSCH PRN IV FLUSH 08/19/16 18:45 (NS Flush) 2 ml BID IV FLUSH 08/19/16 21:00 08/22/16 08:27 (Tylenol) 650 mg Q4H PRN PO 08/19/16 18:45 08/20/16 05:51 (Tylenol) 650 mg Q6H PRN PO 08/19/16 18:45 (Narcan Inj) 0.4 mg UNSCH PRN IV 08/19/16 18:45 (Romazicon Inj) 0.2 mg Q1M PRN IV PUSH 08/19/16 19:00 (Ativan) 1 mg Q4H PRN PO 08/19/16 19:00 (Ativan) 2 mg Q2H PRN PO 08/19/16 19:00 (Ativan Inj) 2 mg Q1H PRN IV PUSH 08/19/16 19:00 (Ativan Inj) 2 mg Q15M PRN IV PUSH 08/19/16 19:00 (Vitamin B1) 100 mg DAILY PO 08/19/16 19:00 08/22/16 08:26 (Folate) 1 mg DAILY PO 08/19/16 19:00 08/22/16 08:26 (Theragran) 1 tab DAILY PO 08/19/16 19:00 08/22/16 08:26 Enoxaparin Sodium 40 mg 40 mg Q24H SQ 08/19/16 20:00 08/21/16 20:29 (Levaquin 750 Mg Premix Inj) 150 ml @ 100 mls/hr Q24H IV 08/20/16 17:00 08/21/16 16:48 (Lasix) 20 mg DAILY PO 08/21/16 09:00 08/22/16 08:26 (KCl) 20 meq DAILY PO 08/21/16 09:00 08/22/16 08:26 (Colace) 100 mg BID PO 08/21/16 10:00 08/22/16 08:26 (Deltasone) 20 mg BID PO 08/21/16 21:00 08/22/16 08:26 (Aldactone) 25 mg DAILY PO 08/21/16 10:00 08/22/16 08:26 Urinary Catheter: No Vascular Central Line Catheter: No A/P Problem List: (1) Acute on chronic systolic (congestive) heart failure ICD Code: I50.23 Status: Acute Plan: The patient presented with lower extremity edema, abdominal distention, BMP over 2000, troponin elevation with a peak of 0.1. EKG with tachycardia but no acute ischemia. Extremity Doppler negative for DVT. Cardiology consulted. Continue to diurese Echo cardiac showed an EF of 55-60% but as per cardiology notes, the patient has known systolic dysfunction. Christie Lasix, spironolactone (2) COPD exacerbation ICD Code: J44.1 Status: Acute Plan: Patient still with significant wheezing. I will see oral prednisone and placed on IV Solu-Medrol until wheezing has ceased. Continue with scheduled and as needed DuoNeb treatments. Continue IV Levaquin, Dc IV Azithromycin. (3) Demand ischemia ICD Code: I24.8 Status: Acute Plan: With elevated troponins. Likely demand ischemia due to resting failure, CHF. (4) Hyponatremia ICD Code: E87.1 Status: Resolved Plan: Due to hypervolemic hyponatremia secondary to fluid overload due to CHF exacerbation and cirrhosis. Continue IV diuretics and fluid restriction. Sodium now within normal levels. (5) Hypomagnesemia ICD Code: E83.42 Status: Acute Plan: Likely secondary to nutritional deficiency and alcohol abuse. I will continue to replace with IV magnesium sulfate. (6) Acute hypoxemic respiratory failure ICD Code: J96.01 Status: Resolved Plan: Patient's oxygen saturations dropped into the mid 80s. Now better still requiring oxygen. Continue to supplement oxygen to keep an oxygen saturation more than 92%. Assessment and Plan GI prophylaxis: Please on PPI DVT prophylaxis: SCDs, Lovenox subcutaneous. Bal Davis MD August 22, 2016 14:04
[2016-08-22] MEDS: MAGNESIUM SULFATE 1 GM PREMIX 100 ML IV SCH ×2 (14:40→15:31)
[2016-08-22] MEDS: LEVOFLOXACIN 750 MG PREMIX INJ 150 ML IV SCH (17:14)
[2016-08-22] MEDS: methylPREDNISolone SOD SUCC 40 MG/1 ML VIAL IV PUSH SCH (18:41)
[2016-08-22] MEDS: ENOXAPARIN SODIUM 40 MG/0.4 ML SYRINGE SQ SCH (20:31)
[2016-08-23] VITALS (10 sets, daily range): BP systolic 130–156; BP diastolic 92–108; PULSE 86–117; RESP 16–20; TEMP 96.1–98.6; O2SAT 90–99
[2016-08-23] MEDS: methylPREDNISolone SOD SUCC 40 MG/1 ML VIAL IV PUSH SCH ×4 (01:10→18:16)
[2016-08-23] MEDS: RESP: ALBUTEROL 2.5 MG/IPRATROPIUM 0.5 MG NEB (SCH) NEB ×3 (08:00→19:34)
[2016-08-23 08:47] LABS: AUTOMATED NEUTROPHIL # 6.7 TH/MM3 (1.8-7.7); BASOPHIL % 0.1 % (0.0-2.0); EOSINOPHIL # 0.1 TH/MM3 (0-0.4); EOSINOPHIL % 0.8 % (0.0-4.0); LYMPH % 6.6 % (9.0-44.0); LYMPHOCYTE # 0.5 TH/MM3 (1.0-4.8); MEAN CELL VOLUME 95.4 FL (80.0-100.0); MEAN CORPUSCULAR HEMOGLOBIN 30.6 PG (27.0-34.0); MONO % 4.4 % (0.0-8.0); NEUT % 88.1 % (16.0-70.0); PLATELET COUNT 177 TH/MM3 (150-450); RED BLOOD COUNT 4.82 MIL/MM3 (4.50-5.90); RED CELL DISTRIBUTION WIDTH 15.6 % (11.6-17.2); WHITE BLOOD COUNT 7.6 TH/MM3 (4.0-11.0)
[2016-08-23 08:51] LABS: HEMO FLAGS DIFF FINAL
[2016-08-23 08:57] LABS: CHLORIDE 87 MEQ/L (98-107); POTASSIUM 4.1 MEQ/L (3.5-5.1); SODIUM (NA) 135 MEQ/L (136-145)
[2016-08-23 09:02] LABS: ANION GAP 5 MEQ/L (5-15); BLOOD UREA NITROGEN 19 MG/DL (7-18); MAGNESIUM 1.5 MG/DL (1.5-2.5)
[2016-08-23 09:04] LABS: ALT (GPT) 55 U/L (12-78)
[2016-08-23 09:05] LABS: AST (GOT) 17 U/L (15-37); GLOMERULAR FILTRATION RATE 133 ML/MIN (>89)
[2016-08-23 09:06] LABS: TOTAL BILIRUBIN ADULT 0.7 MG/DL (0.2-1.0)
[2016-08-23 09:07] LABS: ALKALINE PHOSPHATASE 61 U/L (45-117)
[2016-08-23] MEDS: THIAMINE HCL 100 MG TAB PO SCH (09:19)
[2016-08-23] MEDS: DOCUSATE SODIUM 100 MG CAP PO SCH ×2 (09:19→20:15)
[2016-08-23] MEDS: SPIRONOLACTONE 25 MG TAB PO SCH (09:19)
[2016-08-23] MEDS: POTASSIUM CHLORIDE 20 MEQ CONTROLLED RELEASE TAB PO SCH (09:19)
[2016-08-23] MEDS: FUROSEMIDE 20 MG TAB PO SCH (09:19)
[2016-08-23] MEDS: FOLIC ACID 1 MG TAB PO SCH (09:20)
[2016-08-23] MEDS: MULTIVITAMIN TAB PO SCH (09:20)
[2016-08-23] MEDS: SODIUM CHLORIDE 0.9% FLUSH 10 ML FLUSH IV FLUSH SCH ×2 (09:20→20:15)
--- NOTE | 2016-08-23 14:39 | HHI.PR ---
Subjective Remarks Patient states breathing is much better denies cp/sob denies fevers/chills Objective Vitals Vital Signs Date Time Temp Pulse Resp B/P Pulse Ox O2 Delivery O2 Flow Rate FiO2 08/23/16 12:00 97.0 100 18 131/98 98 08/23/16 08:03 95 Nasal Cannula 2.00 08/23/16 08:00 96.1 86 18 151/108 95 08/23/16 07:00 Nasal Cannula 2.00 21 08/23/16 07:00 86 08/23/16 05:37 97.1 93 20 156/92 99 08/23/16 00:11 97.8 95 18 146/102 94 08/22/16 20:11 98.5 107 20 136/94 93 08/22/16 20:00 107 08/22/16 19:10 97 Nasal Cannula 2.00 08/22/16 19:00 94 Nasal Cannula 2.00 08/22/16 16:00 97.9 99 17 150/89 94 I/O 08/22/16 08/22/16 08/22/16 08/23/16 08/23/16 08/23/16 07:00 15:00 23:00 07:00 15:00 23:00 Intake Total 360 ml 480 ml Output Total 400 ml 500 ml Balance -40 ml -500 ml 480 ml Intake Oral 360 ml 480 ml Output Urine Total 400 ml 500 ml # Voids 1 # Bowel Movements 1 Result Diagram: 08/23/16 0800 08/23/16 0800 Imaging Last Impressions Liver Ultrasound 08/21/16 0000 Signed Impressions: Service Date/Time: August 20:26 - CONCLUSION: 1. Small liver with ascites. 2. Gallbladder wall thickening. This is nonspecific. It can be seen with hepatic disease. There is echogenic material without shadowing seen in the gallbladder fundus likely representing tumefactive sludge. 3. Bilateral pleural effusions. Patrick Ramos MD Myocardial Perfusion Scan Nuc Med 08/20/16 0000 Signed Impressions: Service Date/Time: Saturday, August 20, 2016 11:57 - CONCLUSION: No reversible perfusion defect to suggest stress-induced myocardial ischemia is identified. RISK CATEGORY: Low (<1%% Annual Mortality Rate) Rudolph Park MD CT Angiography 08/19/16 7566 Signed Impressions: Service Date/Time: Friday, August 19, 2016 17:40 - CONCLUSION: No evidence of pulmonary embolism Patrick Gimenez MD Chest X-Ray 08/19/16 1610 Signed Impressions: Service Date/Time: Friday, August 19, 2016 17:54 - CONCLUSION: No acute abnormality is seen. There does appear to be chronic linear density in the upper lungs. Patrick Ramos MD Lower Extremity Ultrasound 08/19/16 0000 Signed Impressions: Service Date/Time: Friday, August 19, 2016 17:20 - CONCLUSION: Normal examination. Patrick Gimenez MD Objective Remarks GENERAL: No apparent distress, appears much older than stated age. SKIN: Focused skin assessment warm/dry. HEAD: Atraumatic. Normocephalic. EYES: Pupils equal and round. No scleral icterus. No injection or drainage. ENT: No nasal bleeding or discharge. Mucous membranes pink and moist. NECK: Trachea midline. No JVD. CARDIOVASCULAR: Tachycardic. No murmur appreciated. RESPIRATORY: Patient with scattered bilateral expiratory wheezing. no crackles or ronchi auscultated GASTROINTESTINAL: Abdomen soft, slightly tender, nondistended. MUSCULOSKELETAL: No obvious deformities. No clubbing. No cyanosis. Patient with trace pedal edema. Pedal pulses intact. NEUROLOGICAL: Awake and alert. No obvious cranial nerve deficits. Motor grossly within normal limits. Normal speech. PSYCHIATRIC: Appropriate mood and affect; insight and judgment normal. Procedures none Medications and IVs Current Medications Medications (Trade) Dose Ordered Sig/Missy Route Start Time Stop Time Status Last Admin (NS Flush) 2 ml UNSCH PRN IV FLUSH 08/19/16 18:45 (NS Flush) 2 ml BID IV FLUSH 08/19/16 21:00 08/23/16 09:20 (Tylenol) 650 mg Q4H PRN PO 08/19/16 18:45 08/20/16 05:51 (Tylenol) 650 mg Q6H PRN PO 08/19/16 18:45 (Narcan Inj) 0.4 mg UNSCH PRN IV 08/19/16 18:45 (Romazicon Inj) 0.2 mg Q1M PRN IV PUSH 08/19/16 19:00 (Ativan) 1 mg Q4H PRN PO 08/19/16 19:00 (Ativan) 2 mg Q2H PRN PO 08/19/16 19:00 (Ativan Inj) 2 mg Q1H PRN IV PUSH 08/19/16 19:00 (Ativan Inj) 2 mg Q15M PRN IV PUSH 08/19/16 19:00 (Vitamin B1) 100 mg DAILY PO 08/19/16 19:00 08/23/16 09:19 (Folate) 1 mg DAILY PO 08/19/16 19:00 08/23/16 09:20 (Theragran) 1 tab DAILY PO 08/19/16 19:00 08/23/16 09:20 Enoxaparin Sodium 40 mg 40 mg Q24H SQ 08/19/16 20:00 08/22/16 20:31 (Levaquin 750 Mg Premix Inj) 150 ml @ 100 mls/hr Q24H IV 08/20/16 17:00 08/22/16 17:14 (Lasix) 20 mg DAILY PO 08/21/16 09:00 08/23/16 09:19 (KCl) 20 meq DAILY PO 08/21/16 09:00 08/23/16 09:19 (Colace) 100 mg BID PO 08/21/16 10:00 08/23/16 09:19 (Aldactone) 25 mg DAILY PO 08/21/16 10:00 08/23/16 09:19 (SoluMEDROL INJ) 40 mg Q6HR IV PUSH 08/22/16 18:00 08/23/16 11:25 Urinary Catheter: No Vascular Central Line Catheter: No A/P Problem List: (1) Acute on chronic systolic (congestive) heart failure ICD Code: I50.23 Status: Resolved Plan: The patient presented with lower extremity edema, abdominal distention, BMP over 1999, troponin elevation with a peak of 0.1. EKG with tachycardia but no acute ischemia. Extremity Doppler negative for DVT. Cardiology consulted. Will hold diuretics for now and remove fluid restriction. The patient will need to be discharged on Lasix and spironolactone Echo cardiac showed an EF of 55-60% but as per cardiology notes, the patient has known systolic dysfunction. (2) COPD exacerbation ICD Code: J44.1 Status: Acute Plan: Wheezing has significantly improved. However still present. Continue IV solumedrol - taper dose to 40 mg IV every 12 hours. Continue with scheduled and as needed DuoNeb treatments. Continue IV Levaquin, azithromycin discontinued. (3) Demand ischemia ICD Code: I24.8 Status: Acute Plan: With elevated troponins. Likely demand ischemia due to resting failure, CHF. (4) Hyponatremia ICD Code: E87.1 Status: Resolved Plan: Due to hypervolemic hyponatremia secondary to fluid overload due to CHF exacerbation and cirrhosis. Continue IV diuretics and fluid restriction. Sodium now within normal levels. (5) Hypomagnesemia ICD Code: E83.42 Status: Acute Plan: Likely secondary to nutritional deficiency and alcohol abuse. I will continue to replace with IV magnesium sulfate. (6) Acute hypoxemic respiratory failure ICD Code: J96.01 Status: Resolved Plan: Patient's oxygen saturations dropped into the mid 80s. Now better still requiring oxygen. Continue to supplement oxygen to keep an oxygen saturation more than 92%. Satting 90% on 2 L nasal cannula. Assessment and Plan GI prophylaxis: Please on PPI DVT prophylaxis: SCDs, Lovenox subcutaneous. Discharge Planning Home with home health PT. Case management to assist. Possible discharge in [facility]. Bal Davis MD August 23, 2016 14:39
[2016-08-23] MEDS: MAGNESIUM SULFATE 1 GM PREMIX 100 ML IV SCH ×2 (16:24→17:08)
[2016-08-23] MEDS: LEVOFLOXACIN 750 MG PREMIX INJ 150 ML IV SCH (16:33)
[2016-08-23] MEDS: ENOXAPARIN SODIUM 40 MG/0.4 ML SYRINGE SQ SCH (20:14)
[2016-08-24] VITALS (9 sets, daily range): BP systolic 130–162; BP diastolic 89–117; PULSE 89–113; RESP 16–22; TEMP 96.7–97.9; O2SAT 93–97
[2016-08-24] MEDS: methylPREDNISolone SOD SUCC 40 MG/1 ML VIAL IV PUSH SCH ×4 (00:07→17:22)
[2016-08-24] MEDS: RESP: ALBUTEROL 2.5 MG/IPRATROPIUM 0.5 MG NEB (SCH) NEB ×3 (07:34→19:25)
[2016-08-24 09:15] LABS: BICARBONATE 26.3 MEQ/L (21.0-32.0); POTASSIUM 3.4 MEQ/L (3.5-5.1)
[2016-08-24] MEDS: POTASSIUM CHLORIDE 20 MEQ CONTROLLED RELEASE TAB PO SCH (09:38)
[2016-08-24] MEDS: FOLIC ACID 1 MG TAB PO SCH (09:38)
[2016-08-24] MEDS: SODIUM CHLORIDE 0.9% FLUSH 10 ML FLUSH IV FLUSH SCH ×2 (09:38→20:34)
[2016-08-24] MEDS: MULTIVITAMIN TAB PO SCH (09:39)
[2016-08-24] MEDS: SPIRONOLACTONE 25 MG TAB PO SCH (09:39)
[2016-08-24] MEDS: THIAMINE HCL 100 MG TAB PO SCH (09:39)
[2016-08-24] MEDS: DOCUSATE SODIUM 100 MG CAP PO SCH ×2 (09:39→20:33)
--- NOTE | 2016-08-24 12:00 | HHI.PR ---
Subjective Remarks breathing better denies cp/sob sating 94% on 2 liters nasal canula c/o cough but as per patient improving Objective Vitals Vital Signs Date Time Temp Pulse Resp B/P Pulse Ox O2 Delivery O2 Flow Rate FiO2 08/24/16 09:26 2.00 08/24/16 08:00 97.1 106 18 144/102 94 08/24/16 07:36 94 Nasal Cannula 2.00 08/24/16 07:00 Nasal Cannula 2.00 08/24/16 04:47 97.9 89 16 139/89 97 08/24/16 00:50 97.4 112 22 143/96 96 08/23/16 23:00 117 08/23/16 20:48 98.6 116 16 130/103 90 08/23/16 19:34 95 Nasal Cannula 2.00 08/23/16 19:00 Nasal Cannula 2.00 08/23/16 16:00 97.3 90 18 138/95 96 08/23/16 12:00 97.0 100 18 131/98 98 I/O 08/23/16 08/23/16 08/23/16 08/24/16 08/24/16 08/24/16 06:59 14:59 22:59 06:59 14:59 22:59 Intake Total 480 ml 240 ml Balance 480 ml 240 ml Intake Oral 480 ml 240 ml # Voids 3 Result Diagram: 08/23/16 0800 08/24/16 0720 Imaging Last Impressions Liver Ultrasound 08/21/16 0000 Signed Impressions: Service Date/Time: August 20:26 - CONCLUSION: 1. Small liver with ascites. 2. Gallbladder wall thickening. This is nonspecific. It can be seen with hepatic disease. There is echogenic material without shadowing seen in the gallbladder fundus likely representing tumefactive sludge. 3. Bilateral pleural effusions. Patrick Ramos MD Myocardial Perfusion Scan Nuc Med 08/20/16 0000 Signed Impressions: Service Date/Time: Saturday, August 20, 2016 11:57 - CONCLUSION: No reversible perfusion defect to suggest stress-induced myocardial ischemia is identified. RISK CATEGORY: Low (<1%% Annual Mortality Rate) Rudolph Park MD CT Angiography 08/19/16 1656 Signed Impressions: Service Date/Time: Friday, August 19, 2016 17:40 - CONCLUSION: No evidence of pulmonary embolism Patrick Gimenez MD Chest X-Ray 08/19/16 1610 Signed Impressions: Service Date/Time: Friday, August 19, 2016 17:54 - CONCLUSION: No acute abnormality is seen. There does appear to be chronic linear density in the upper lungs. Patrick Ramos MD Lower Extremity Ultrasound 08/19/16 0000 Signed Impressions: Service Date/Time: Friday, August 19, 2016 17:20 - CONCLUSION: Normal examination. Patrick Gimenez MD Objective Remarks GENERAL: No apparent distress, appears much older than stated age. SKIN: Focused skin assessment warm/dry. HEAD: Atraumatic. Normocephalic. EYES: Pupils equal and round. No scleral icterus. No injection or drainage. ENT: No nasal bleeding or discharge. Mucous membranes pink and moist. NECK: Trachea midline. No JVD. CARDIOVASCULAR: Tachycardic. No murmur appreciated. RESPIRATORY: Decreased breath sounds bilaterally however her to auscultation. No rales or rhonchi auscultated. GASTROINTESTINAL: Abdomen soft, slightly tender, nondistended. MUSCULOSKELETAL: No obvious deformities. No clubbing. No cyanosis. Patient with trace pedal edema. Pedal pulses intact. NEUROLOGICAL: Awake and alert. No obvious cranial nerve deficits. Motor grossly within normal limits. Normal speech. PSYCHIATRIC: Appropriate mood and affect; insight and judgment normal. Procedures none Medications and IVs Current Medications Medications (Trade) Dose Ordered Sig/Missy Route Start Time Stop Time Status Last Admin (NS Flush) 2 ml UNSCH PRN IV FLUSH 08/19/16 18:45 (NS Flush) 2 ml BID IV FLUSH 08/19/16 21:00 08/24/16 09:38 (Tylenol) 650 mg Q4H PRN PO 08/19/16 18:45 08/20/16 05:51 (Tylenol) 650 mg Q6H PRN PO 08/19/16 18:45 (Narcan Inj) 0.4 mg UNSCH PRN IV 08/19/16 18:45 (Romazicon Inj) 0.2 mg Q1M PRN IV PUSH 08/19/16 19:00 (Ativan) 1 mg Q4H PRN PO 08/19/16 19:00 (Ativan) 2 mg Q2H PRN PO 08/19/16 19:00 (Ativan Inj) 2 mg Q1H PRN IV PUSH 08/19/16 19:00 (Ativan Inj) 2 mg Q15M PRN IV PUSH 08/19/16 19:00 (Vitamin B1) 100 mg DAILY PO 08/19/16 19:00 08/24/16 09:39 (Folate) 1 mg DAILY PO 08/19/16 19:00 08/24/16 09:38 (Theragran) 1 tab DAILY PO 08/19/16 19:00 08/24/16 09:39 Enoxaparin Sodium 40 mg 40 mg Q24H SQ 08/19/16 20:00 08/23/16 20:14 (Levaquin 750 Mg Premix Inj) 150 ml @ 100 mls/hr Q24H IV 08/20/16 17:00 08/23/16 16:33 (KCl) 20 meq DAILY PO 08/21/16 09:00 08/24/16 09:38 (Colace) 100 mg BID PO 08/21/16 10:00 08/24/16 09:39 (Aldactone) 25 mg DAILY PO 08/21/16 10:00 08/24/16 09:39 (SoluMEDROL INJ) 40 mg Q6HR IV PUSH 08/22/16 18:00 08/24/16 05:42 A/P Problem List: (1) Acute on chronic systolic (congestive) heart failure ICD Code: I50.23 Status: Resolved Plan: The patient presented with lower extremity edema, abdominal distention, BMP over 1999, troponin elevation with a peak of 0.1. EKG with tachycardia but no acute ischemia. Extremity Doppler negative for DVT. Cardiology consulted. Will hold diuretics for now and remove fluid restriction. The patient will need to be discharged on Lasix and spironolactone Echo cardiac showed an EF of 55-60% but as per cardiology notes, the patient has known systolic dysfunction. Hold diuretics due to ALVINA and rise in creatinine likely due to overdiuresis. (2) COPD exacerbation ICD Code: J44.1 Status: Acute Plan: Wheezing has significantly improved. However still present. Continue IV solumedrol - taper dose to 40 mg IV every 12 hours. Continue with scheduled and as needed DuoNeb treatments. Continue IV Levaquin, azithromycin discontinued. (3) Demand ischemia ICD Code: I24.8 Status: Acute Plan: With elevated troponins. Likely demand ischemia due to resting failure, CHF. (4) Hyponatremia ICD Code: E87.1 Status: Resolved Plan: Due to hypervolemic hyponatremia secondary to fluid overload due to CHF exacerbation and cirrhosis. Treated with dieuretics and fluid restriction Sodium now within normal levels. (5) Hypomagnesemia ICD Code: E83.42 Status: Acute Plan: Likely secondary to nutritional deficiency and alcohol abuse. Replaced with IV Magnesium sulfate. Continue to monitor (6) Acute hypoxemic respiratory failure ICD Code: J96.01 Status: Resolved Plan: Patient's oxygen saturations dropped into the mid 80s. Now better still requiring oxygen. Continue to supplement oxygen to keep an oxygen saturation more than 92%. Satting 90% on 2 L nasal cannula. (7) ALVINA (acute kidney injury) ICD Code: N17.9 Status: Acute Plan: Creatinine went up from 0.6 to 1.3 likely due to overdiuresis. Patient also with contraction alkalosis up to yesterday much improved today with Co2 of 43 down to 26.3. Continue to hold all diuretics and remove fluid restriction. Encourage oral intake of fluids. Monitor BUN and creatinine, strict input and output. Assessment and Plan GI prophylaxis: Please on PPI DVT prophylaxis: SCDs, Lovenox subcutaneous. Discharge Planning Home with home health PT. Case management to assist. Possible discharge in [facility]. Bal Davis MD August 24, 2016 11:59
[2016-08-24] MEDS: POTASSIUM CHLORIDE INJ 20 MEQ, SODIUM CHLORIDE 23.4% INJ 38.5 MEQ in WATER STERILE FOR ... IV SCH (12:59)
[2016-08-24] MEDS: LEVOFLOXACIN 750 MG PREMIX INJ 150 ML IV SCH (17:21)
[2016-08-24] MEDS: ENOXAPARIN SODIUM 40 MG/0.4 ML SYRINGE SQ SCH (20:33)
[2016-08-24 20:46] LABS: BICARBONATE 41.8 MEQ/L (21.0-32.0); POTASSIUM 4.9 MEQ/L (3.5-5.1)
[2016-08-24] MEDS ORDERED: cloNIDine HCL 0.1 MG TAB PO ONE (23:15)
[2016-08-24] MEDS ORDERED: ALUMINUM/MAGNESIUM/SIMETH 30 ML CUP PO ONE (23:15)
[2016-08-24 23:55] LABS: MAGNESIUM 1.5 MG/DL (1.5-2.5)
[2016-08-25] VITALS: BP 182/128; PULSE 119; RESP 22; TEMP 96.4; O2SAT 93
[2016-08-25] MEDS: methylPREDNISolone SOD SUCC 40 MG/1 ML VIAL IV PUSH SCH ×2 (00:30→05:27)
[2016-08-25] MEDS: POTASSIUM CHLORIDE INJ 20 MEQ, SODIUM CHLORIDE 23.4% INJ 38.5 MEQ in WATER STERILE FOR ... IV SCH (00:42)
[2016-08-25 04:00] VITALS: BP 151/109; PULSE 100; RESP 22; TEMP 97.3; O2SAT 96
[2016-08-25 06:56] LABS: POTASSIUM 5.3 MEQ/L (3.5-5.1)
[2016-08-25 07:00] LABS: BICARBONATE 40.5 MEQ/L (21.0-32.0)
[2016-08-25] MEDS: RESP: ALBUTEROL 2.5 MG/IPRATROPIUM 0.5 MG NEB (SCH) NEB (07:23)
[2016-08-25 07:24] VITALS: O2SAT 92
[2016-08-25 08:00] VITALS: BP 142/85; PULSE 96; RESP 20; TEMP 97.6; O2SAT 95
[2016-08-25] MEDS ORDERED: FUROSEMIDE 20 MG TAB PO SCH (09:00)
[2016-08-25] MEDS: POTASSIUM CHLORIDE 20 MEQ CONTROLLED RELEASE TAB PO SCH (09:00)
[2016-08-25] MEDS ORDERED: SPIRONOLACTONE 25 MG TAB PO SCH (09:00)
[2016-08-25] MEDS: SODIUM CHLORIDE 0.9% FLUSH 10 ML FLUSH IV FLUSH SCH (09:00)
[2016-08-25] MEDS: FOLIC ACID 1 MG TAB PO SCH (09:37)
[2016-08-25] MEDS: DOCUSATE SODIUM 100 MG CAP PO SCH (09:37)
[2016-08-25] MEDS: MULTIVITAMIN TAB PO SCH (09:38)
[2016-08-25] MEDS: THIAMINE HCL 100 MG TAB PO SCH (09:38)
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
--- NOTE | 2016-08-25 11:33 | HHI.PR ---
Subjective Remarks deferred entry patient seen at 9:30 am BP elevated overnight into the 180's patient states breathing status is improved still coughing on and off but improved from previous days denies fevers/chills denies cp sodium trended down now low potassium slightly elevated Objective Vitals Vital Signs Date Time Temp Pulse Resp B/P Pulse Ox O2 Delivery O2 Flow Rate FiO2 08/25/16 08:00 97.6 96 20 142/85 95 08/25/16 07:24 92 Nasal Cannula 2.00 08/25/16 04:00 97.3 100 22 151/109 96 08/25/16 00:00 96.4 119 22 182/128 93 08/24/16 23:00 112 08/24/16 20:00 96.7 113 22 162/117 93 08/24/16 19:25 94 Nasal Cannula 2.00 08/24/16 19:00 93 Nasal Cannula 2.00 08/24/16 16:00 97.3 100 18 130/90 97 08/24/16 12:00 96.8 111 18 134/100 95 I/O 08/24/16 08/24/16 08/24/16 08/25/16 08/25/16 08/25/16 06:59 14:59 22:59 06:59 14:59 22:59 Intake Total 1416 ml 120 ml Output Total 3 ml Balance 1413 ml 120 ml Intake Oral 1320 ml 120 ml IV Total 96 ml Output Urine Total 3 ml # Voids 3 5 2 # Bowel Movements 2 2 Result Diagram: 08/23/16 0800 08/25/16 0620 Imaging Last Impressions Liver Ultrasound 08/21/16 0000 Signed Impressions: Service Date/Time: August 20:26 - CONCLUSION: 1. Small liver with ascites. 2. Gallbladder wall thickening. This is nonspecific. It can be seen with hepatic disease. There is echogenic material without shadowing seen in the gallbladder fundus likely representing tumefactive sludge. 3. Bilateral pleural effusions. Patrick Ramos MD Myocardial Perfusion Scan Nuc Med 08/20/16 0000 Signed Impressions: Service Date/Time: Saturday, August 20, 2016 11:57 - CONCLUSION: No reversible perfusion defect to suggest stress-induced myocardial ischemia is identified. RISK CATEGORY: Low (<1%% Annual Mortality Rate) Rudolph Park MD CT Angiography 08/19/16 1656 Signed Impressions: Service Date/Time: Friday, August 19, 2016 17:40 - CONCLUSION: No evidence of pulmonary embolism Patrick Gimenez MD Chest X-Ray 08/19/16 1610 Signed Impressions: Service Date/Time: Friday, August 19, 2016 17:54 - CONCLUSION: No acute abnormality is seen. There does appear to be chronic linear density in the upper lungs. Patrick Ramos MD Lower Extremity Ultrasound 08/19/16 0000 Signed Impressions: Service Date/Time: Friday, August 19, 2016 17:20 - CONCLUSION: Normal examination. Patrick Gimenez MD Objective Remarks GENERAL: No apparent distress, appears much older than stated age. SKIN: Focused skin assessment warm/dry. HEAD: Atraumatic. Normocephalic. EYES: Pupils equal and round. No scleral icterus. No injection or drainage. ENT: No nasal bleeding or discharge. Mucous membranes pink and moist. NECK: Trachea midline. No JVD. CARDIOVASCULAR: Tachycardic. No murmur appreciated. RESPIRATORY: Decreased breath sounds bilaterally however clear to auscultation. No rales or rhonchi auscultated. GASTROINTESTINAL: Abdomen soft, slightly tender, nondistended. MUSCULOSKELETAL: No obvious deformities. No clubbing. No cyanosis. Patient with trace pedal edema. Pedal pulses intact. NEUROLOGICAL: Awake and alert. No obvious cranial nerve deficits. Motor grossly within normal limits. Normal speech. PSYCHIATRIC: Appropriate mood and affect; insight and judgment normal. Procedures none Medications and IVs Current Medications Medications (Trade) Dose Ordered Sig/Missy Route Start Time Stop Time Status Last Admin (NS Flush) 2 ml UNSCH PRN IV FLUSH 08/19/16 18:45 (NS Flush) 2 ml BID IV FLUSH 08/19/16 21:00 08/25/16 09:00 (Tylenol) 650 mg Q4H PRN PO 08/19/16 18:45 08/20/16 05:51 (Tylenol) 650 mg Q6H PRN PO 08/19/16 18:45 (Narcan Inj) 0.4 mg UNSCH PRN IV 08/19/16 18:45 (Romazicon Inj) 0.2 mg Q1M PRN IV PUSH 08/19/16 19:00 (Ativan) 1 mg Q4H PRN PO 08/19/16 19:00 (Ativan) 2 mg Q2H PRN PO 08/19/16 19:00 (Ativan Inj) 2 mg Q1H PRN IV PUSH 08/19/16 19:00 (Ativan Inj) 2 mg Q15M PRN IV PUSH 08/19/16 19:00 (Vitamin B1) 100 mg DAILY PO 08/19/16 19:00 08/25/16 09:38 (Folate) 1 mg DAILY PO 08/19/16 19:00 08/25/16 09:37 (Theragran) 1 tab DAILY PO 08/19/16 19:00 08/25/16 09:38 Enoxaparin Sodium 40 mg 40 mg Q24H SQ 08/19/16 20:00 08/24/16 20:33 (Levaquin 750 Mg Premix Inj) 150 ml @ 100 mls/hr Q24H IV 08/20/16 17:00 08/24/16 17:21 (KCl) 20 meq DAILY PO 08/21/16 09:00 08/24/16 09:38 (Colace) 100 mg BID PO 08/21/16 10:00 08/25/16 09:37 (Aldactone) 25 mg DAILY PO 08/21/16 10:00 Hold 08/24/16 09:39 (SoluMEDROL INJ) 40 mg Q6HR IV PUSH 08/22/16 18:00 08/25/16 05:27 (Lasix) 20 mg DAILY PO 08/25/16 09:00 08/25/16 09:37 (Aldactone) 25 mg DAILY PO 08/25/16 09:00 08/25/16 09:38 Urinary Catheter: No Vascular Central Line Catheter: No A/P Problem List: (1) Acute on chronic systolic (congestive) heart failure ICD Code: I50.23 Status: Resolved Plan: The patient presented with lower extremity edema, abdominal distention, BMP over 1999, troponin elevation with a peak of 0.1. EKG with tachycardia but no acute ischemia. Extremity Doppler negative for DVT. Cardiology consulted. Will hold diuretics for now and remove fluid restriction. The patient will need to be discharged on Lasix and spironolactone Echo cardiac showed an EF of 55-60% but as per cardiology notes, the patient has known systolic dysfunction. Duiuretics held due to ALVINA on 08/24 08/25 Creatinine improved - will resume diuretics. (2) COPD exacerbation ICD Code: J44.1 Status: Acute Plan: Wheezing has significantly improved. However still present. Continue with scheduled and as needed DuoNeb treatments. Continue IV Levaquin, azithromycin discontinued. 08/25 Dc IV Solumedrol and start Prednisone. (3) Demand ischemia ICD Code: I24.8 Status: Acute Plan: With elevated troponins. Likely demand ischemia due to resting failure, CHF. (4) Hyponatremia ICD Code: E87.1 Status: Resolved Plan: Due to hypervolemic hyponatremia secondary to fluid overload due to CHF exacerbation and cirrhosis. Treated with dieuretics and fluid restriction Hyponatremia resolved transiently then patient became hypernatremic and after hypotonic infusion sodium is low again at 132 DC hypotonic saline, repeat BMP at noon (5) Hypomagnesemia ICD Code: E83.42 Status: Acute Plan: Likely secondary to nutritional deficiency and alcohol abuse. Replaced with IV Magnesium sulfate. Continue to monitor (6) Acute hypoxemic respiratory failure ICD Code: J96.01 Status: Resolved Plan: Patient's oxygen saturations dropped into the mid 80s. Now better still requiring oxygen. Continue to supplement oxygen to keep an oxygen saturation more than 92%. Satting 95% on 2 liters nasal canula (7) ALVINA (acute kidney injury) ICD Code: N17.9 Status: Resolved Plan: Creatinine went up from 0.6 to 1.3 likely due to overdiuresis. Patient also with contraction alkalosis up to yesterday much improved today with Co2 of 43 down to 26.3. 08/25 ALVINA resolved after IV fluids administration and removal of fluid restriction. Resume diuretics - Lasix and spironolactone. (8) Hyperkalemia ICD Code: E87.5 Status: Acute Plan: K up to 5.3. Will resume diuretics and recheck BMP at noon. Assessment and Plan GI prophylaxis: Please on PPI DVT prophylaxis: SCDs, Lovenox subcutaneous. Discharge Planning Home with home health PT. Case management to assist. Possible DC later today if sodium stable and hyperkalemia resolved. Bal Davis MD August 25, 2016 11:33
[2016-08-25 12:00] VITALS: BP 137/89; PULSE 98; RESP 18; TEMP 96.9; O2SAT 95
[2016-08-25] MEDS ORDERED: predniSONE 20 MG TAB PO SCH (13:00)
[2016-08-25 13:29] LABS: POTASSIUM 4.9 MEQ/L (3.5-5.1)
[2016-08-25 13:33] LABS: BICARBONATE 40.6 MEQ/L (21.0-32.0)
[2016-08-25] MEDS: RESP: ALBUTEROL 2.5 MG/IPRATROPIUM 0.5 MG NEB (PRN) NEB (14:04)
[2016-08-25] MEDS ORDERED: VITA100T2 PO (14:46)
[2016-08-25] MEDS ORDERED: FOLI1TAB4 PO (14:46)
[2016-08-25] MEDS ORDERED: FURO20TA PO (14:46)
[2016-08-25] MEDS ORDERED: THERTAB15 PO (14:46)
[2016-08-25] MEDS ORDERED: LEVA500T PO (14:46)
--- NOTE | 2016-08-25 14:53 | HHI.DS ---
Discharge Summary Admission Date August 19, 2016 at 18:49 Discharge Date: August 25, 2016 Admitting Diagnosis NSTEMI, Hypoxia, COPD exacerbation (1) Acute on chronic systolic (congestive) heart failure ICD Code: I50.23 Diagnosis: Principal (2) COPD exacerbation ICD Code: J44.1 Diagnosis: Principal (3) Demand ischemia ICD Code: I24.8 Diagnosis: Principal (4) Hyponatremia ICD Code: E87.1 Diagnosis: Principal (5) Hypomagnesemia ICD Code: E83.42 Diagnosis: Principal (6) Acute hypoxemic respiratory failure ICD Code: J96.01 Diagnosis: Principal (7) ALVINA (acute kidney injury) ICD Code: N17.9 Diagnosis: Principal (8) Hyperkalemia ICD Code: E87.5 Diagnosis: Principal (9) Impaired fasting glucose ICD Code: R73.01 Diagnosis: Principal Procedures none Brief History - From Admission The patient is a 56-year-old male with a past medical history of alcohol abuse and COPD who is presenting to the hospital with leg swelling and leg pain. The patient says that his symptoms started about 2 days ago where he noticed increased swelling in his legs all the way up to his thighs. He described a stabbing, shooting pain in his thighs that occurred at rest. He also described a stabbing and shooting pain in both of his arms over the past few days. He has had some abdominal pain secondary to his stomach getting more swollen. The patient denies any fevers but has felt hot and cold intermittently. He does endorse chronic congestion. He denies chest pain or shortness of breath. He reports not being able to eat very well over the past few days. He has not been passing much stool recently either. He says he used to be on salt tablets. He says his breathing is at his baseline. He continues to smoke and he continues to drink. He believes his last alcohol withdrawal seizure was years ago. Family at the bedside. Discussed with nursing. CBC/BMP: 08/23/16 0800 08/25/16 1300 Significant Findings Laboratory Tests Test 08/23/16 08/24/16 08/24/1617 08:00 07:20 19:56 06:20 Neutrophils (%) (Auto) 88.1 % (16.0-70.0) Lymphocytes (%) (Auto) 6.6 % (9.0-44.0) Lymphocytes # (Auto) 0.5 TH/MM3 (1.0-4.8) Sodium Level 135 MEQ/L 146 MEQ/L 134 MEQ/L 132 MEQ/L (136-145) (136-145) (136-145) (136-145) Chloride Level 87 MEQ/L 111 MEQ/L 87 MEQ/L 87 MEQ/L (98-107) (98-107) (98-107) (98-107) Carbon Dioxide Level 43.0 MEQ/L 41.8 MEQ/L 40.5 MEQ/L (21.0-32.0) (21.0-32.0) (21.0-32.0) Blood Urea Nitrogen 19 MG/DL (7-18) 25 MG/DL (7-18) 24 MG/DL (7-18) Random Glucose 176 MG/DL 120 MG/DL 114 MG/DL (74-106) (74-106) (74-106) Total Protein 5.5 GM/DL (6.4-8.2) Albumin 2.4 GM/DL (3.4-5.0) Potassium Level 3.4 MEQ/L 5.3 MEQ/L (3.5-5.1) (3.5-5.1) Estimat Glomerular Filtration 57 ML/MIN (>89) Rate Calcium Level 7.5 MG/DL (8.5-10.1) Creatinine 0.56 MG/DL (0.60-1.30) Test 08/25/16 13:00 Sodium Level 132 MEQ/L (136-145) Chloride Level 85 MEQ/L (98-107) Carbon Dioxide Level 40.6 MEQ/L (21.0-32.0) Blood Urea Nitrogen 25 MG/DL (7-18) Random Glucose 159 MG/DL (74-106) Imaging Last Impressions Liver Ultrasound 08/21/16 0000 Signed Impressions: Service Date/Time: August 20:26 - CONCLUSION: 1. Small liver with ascites. 2. Gallbladder wall thickening. This is nonspecific. It can be seen with hepatic disease. There is echogenic material without shadowing seen in the gallbladder fundus likely representing tumefactive sludge. 3. Bilateral pleural effusions. Patrick Ramos MD Myocardial Perfusion Scan [facility] 08/20/16 0000 Signed Impressions: Service Date/Time: Saturday, August 20, 2016 11:57 - CONCLUSION: No reversible perfusion defect to suggest stress-induced myocardial ischemia is identified. RISK CATEGORY: Low (<1%% Annual Mortality Rate) Rudolph Park MD CT Angiography 08/19/16 1656 Signed Impressions: Service Date/Time: Friday, August 19, 2016 17:40 - CONCLUSION: No evidence of pulmonary embolism Patrick Gimenez MD Chest X-Ray 08/19/16 1610 Signed Impressions: Service Date/Time: Friday, August 19, 2016 17:54 - CONCLUSION: No acute abnormality is seen. There does appear to be chronic linear density in the upper lungs. Patrick Ramos MD Lower Extremity Ultrasound 08/19/16 0000 Signed Impressions: Service Date/Time: Friday, August 19, 2016 17:20 - CONCLUSION: Normal examination. Patrick Gimenez MD PE at Discharge GENERAL: No apparent distress, appears much older than stated age. SKIN: Focused skin assessment warm/dry. HEAD: Atraumatic. Normocephalic. EYES: Pupils equal and round. No scleral icterus. No injection or drainage. ENT: No nasal bleeding or discharge. Mucous membranes pink and moist. NECK: Trachea midline. No JVD. CARDIOVASCULAR: Tachycardic. No murmur appreciated. RESPIRATORY: Decreased breath sounds bilaterally however clear to auscultation. No rales or rhonchi auscultated. GASTROINTESTINAL: Abdomen soft, slightly tender, nondistended. MUSCULOSKELETAL: No obvious deformities. No clubbing. No cyanosis. Patient with trace pedal edema. Pedal pulses intact. NEUROLOGICAL: Awake and alert. No obvious cranial nerve deficits. Motor grossly within normal limits. Normal speech. PSYCHIATRIC: Appropriate mood and affect; insight and judgment normal. Hospital Course (1) Acute on chronic systolic (congestive) heart failure The patient presented with lower extremity edema, abdominal distention, BMP over 2000, troponin elevation with a peak of 0.1. EKG with tachycardia but no acute ischemia. Extremity Doppler negative for DVT. Cardiology consulted. Will hold diuretics for now and remove fluid restriction. The patient will need to be discharged on Lasix and spironolactone Echo cardiac showed an EF of 55-60% but as per cardiology notes, the patient has known systolic dysfunction. Duiuretics held due to ALVINA on 08/24 08/25 Creatinine improved - Diuretics resumed (2) COPD exacerbation Wheezing has significantly improved. However still present. Continue with scheduled and as needed DuoNeb treatments. Continue IV Levaquin, azithromycin discontinued. Treated with IV Solumedrol tapered to oral prednisone on discharge. (3) Demand ischemia Patient found to have elevated troponin levels. Likely demand ischemia due to resting failure, CHF. (4) Hyponatremia Due to hypervolemic hyponatremia secondary to fluid overload due to CHF exacerbation and cirrhosis. Treated with diuretics and fluid restriction Hyponatremia resolved transiently then patient became hypernatremic and after hypotonic infusion sodium is low again at 132 DC hypotonic saline, repeat BMP at noon (5) Hypomagnesemia Likely secondary to nutritional deficiency and alcohol abuse. Replaced with IV Magnesium sulfate. Mg monitored. (6) Acute hypoxemic respiratory failure Patient's oxygen saturations dropped into the mid 80s. Now better still requiring oxygen. Continue to supplement oxygen to keep an oxygen saturation more than 92%. Satting 95% on 2 liters nasal canula (7) ALVINA (acute kidney injury) Creatinine went up from 0.6 to 1.3 likely due to overdiuresis. Patient also with contraction alkalosis up to 08/24 much improved after IV fluid adninistration and removal of fluid restriction. 08/25 ALVINA resolved after IV fluids administration and removal of fluid restriction. Resume diuretics - Lasix and spironolactone. (8) Hyperkalemia Potassium up to 5.3. Will resume diuretics and recheck BMP at noon - K 4.9 prior to discharge. GI prophylaxis: Please on PPI DVT prophylaxis: SCDs, Lovenox subcutaneous. Pt Condition on Discharge: Stable Discharge Disposition: Disch w/ Home Health Serv Discharge Time: > 30 minutes Discharge Instructions DIET: Follow Instructions for: Heart Healthy Diet Activities you can perform: Regular-No Restrictions Follow up Referrals: Cardiology - 2 Weeks with Douglas Jones MD PCP Follow-up - 2-3 Days SNF[facility]/ with [facility] New Medications: Oxygen tank (Oxygen tank) 1 Ea Tank 2 LITER JAIME.CANULA CONTINUOUS Oxygen Concentrator Portable Gaseous 2 L/min via Nasal Cannula Continuous For 99 months HYPOXEMIA PREVENTION #2 CYLINDER Folic Acid (Folate) 1 Mg Tab 1 MG PO DAILY Alcohol Detox #31 TAB Furosemide (Furosemide) 20 Mg Tab 20 MG PO DAILY chf #31 TAB Levofloxacin (Levaquin) 500 Mg Tab 500 MG PO DAILY Infection #7 TAB Multiple Vitamin (Thera/Beta-Carotene) 1 Tab Tab 1 TAB PO DAILY Alcohol Detox #31 TAB Thiamine (Vitamin B-1) 100 Mg Tab 100 MG PO DAILY Alcohol Detox #31 TAB Bal Davis MD August 25, 2016 14:53
--- NOTE | 2016-08-25 16:42 | HHI.FF ---
Face to Face Verification Diagnosis: (1) Acute hypoxemic respiratory failure (2) COPD with exacerbation (3) Acute on chronic systolic (congestive) heart failure (4) Demand ischemia (5) ALVINA (acute kidney injury) (6) Impaired fasting glucose (7) Hyperkalemia (8) Hypokalemia (9) Hyponatremia Physical Therapy Order: Evaluate and Treat, Improve ambulation, Strength and gait training Home Health Nursing Order: Medical education Signs/symptoms of disease process Oxygen administration education Medication education-adverse effect Nursing assessment with vital signs I have seen patient Marlon Perez on 08/25/16. My clinical findings support the need for the requested home health care services because: Ltd mobility - disease progression Patient has SOB High risk of falls I certify that my clinical findings support that this patient is homebound because: Hx COPD- exertion dyspnea/weakness Irena Unger August 25, 2016 16:42
[2016-08-26] MEDS ORDERED: LEVOFLOXACIN 500 MG TAB PO SCH (09:00)
== END 2016-08-25 17:04 | disposition home health service (06) | DRG 291 ==
LOC: PHED 16:00 → PHEDA 18:49 → PH3B 21:12
PROVIDERS: ADMIT Hospitalist; ATTEND Hospitalist
DX: I50.23 Acute on chronic systolic (congestive) heart failure (principal); J96.01 Acute respiratory failure with hypoxia; N17.9 Acute kidney failure, unspecified; E87.0 Hyperosmolality and hypernatremia; E87.3 Alkalosis; E87.1 Hypo-osmolality and hyponatremia; I42.9 Cardiomyopathy, unspecified; J44.1 Chronic obstructive pulmonary disease with (acute) exacerbation; I24.8 Other forms of acute ischemic heart disease; K74.60 Unspecified cirrhosis of liver; E83.42 Hypomagnesemia; F17.210 Nicotine dependence, cigarettes, uncomplicated; Z87.11 Personal history of peptic ulcer disease; H91.90 Unspecified hearing loss, unspecified ear; R00.0 Tachycardia, unspecified; F10.10 Alcohol abuse, uncomplicated; D72.819 Decreased white blood cell count, unspecified; E63.9 Nutritional deficiency, unspecified; T50.2X5A Adverse effect of carbonic-anhydrase inhibitors, benzothiadiazides and other diuretics, initial encounter; Y92.239 Unspecified place in hospital as the place of occurrence of the external cause; E87.5 Hyperkalemia; R73.9 Hyperglycemia, unspecified; T38.0X5A Adverse effect of glucocorticoids and synthetic analogues, initial encounter; R73.01 Impaired fasting glucose
CPT/HCPCS: 36600; 71010; 71275; 76705; 78452; 80048; 80053; 80061; 80307; 81001; 82550; 82552; 82805; 83036; 83605; 83735; 83880; 84100; 84443; 84484; 85025; 85027; 85379; 85610; 85730; 87040; 87070; 87205; 87804; 93005; 93017; 93306; 93970; 94150; 94620; 94640; 94664; 96374; 96375; A9502; J0456; J0696; J1650; J1940; J1956; J2785; J2920; J2930; J3475; J3480; J7030; J7050; J7512; Q9967

== ENCOUNTER 2017-01-21 18:48 | Observation (INO) | payer MEDICAID ==
[2017-01-21] VITALS (10 sets, daily range): BP systolic 85–133; BP diastolic 66–96; PULSE 105–124; RESP 20–24; TEMP 97.6–98.4; O2SAT 92–96
[~2017-01-21] VITALS: Ht 167.6 cm; Wt 65.0 kg
[~2017-01-21 18:48] MED LIST changes: -ADVAI250I PO; -ALBU8I INH; +FOLI1TAB4 PO; +FURO20TA PO; +LEVA500T PO; -LEVA750T PO; -LISI5 PO; -MAGN400 PO; -METO25 PO; +OXYGENTANK NAS.CANULA; -PRED10 PO; +THERTAB15 PO; -THIA100T PO; +VITA100T2 PO
[2017-01-21] MEDS ORDERED: methylPREDNISolone SOD SUCC 125 MG/2 ML VIAL IV PUSH ONE (19:15)
[2017-01-21] MEDS ORDERED: SODIUM CHLORIDE 0.9% FLUSH 10 ML FLUSH IVF PRN (19:15)
[2017-01-21] MEDS: RESP: ALBUTEROL 2.5 MG/IPRATROPIUM 0.5 MG NEB (SCH) INH (19:21)
[2017-01-21 19:26] LABS: AUTOMATED NEUTROPHIL # 6.1 TH/MM3 (1.8-7.7); BASOPHIL # 0.3 TH/MM3 (0-0.2); BASOPHIL % 3.1 % (0.0-2.0); EOSINOPHIL # 0.3 TH/MM3 (0-0.4); HEMATOCRIT 50.3 % (39.0-51.0); HEMO FLAGS DIFF FINAL; LYMPH % 25.4 % (9.0-44.0); LYMPHOCYTE # 2.7 TH/MM3 (1.0-4.8); MEAN CELL VOLUME 92.7 FL (80.0-100.0); MEAN CORPUSCULAR HEMOGLOBIN 30.5 PG (27.0-34.0); MEAN CORPUSCULAR HGB CONC 32.9 % (32.0-36.0); MONO % 12.2 % (0.0-8.0); NEUT % 56.3 % (16.0-70.0); PLATELET COUNT 255 TH/MM3 (150-450); RED BLOOD COUNT 5.43 MIL/MM3 (4.50-5.90); RED CELL DISTRIBUTION WIDTH 13.9 % (11.6-17.2); WHITE BLOOD COUNT 10.8 TH/MM3 (4.0-11.0)
[2017-01-21] MEDS ORDERED: FUROSEMIDE 100 MG/10 ML VIAL IV PUSH ONE (19:30)
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
[2017-01-21 19:37] LABS: CHLORIDE 94 MEQ/L (98-107); POTASSIUM 3.5 MEQ/L (3.5-5.1); SODIUM (NA) 135 MEQ/L (136-145)
[2017-01-21 19:41] LABS: ANION GAP 7 MEQ/L (5-15); BLOOD UREA NITROGEN 12 MG/DL (7-18)
[2017-01-21 19:44] LABS: BLOOD GAS BASE EXCESS 8.8 mmol/L (-2-2); BLOOD GAS CARBOXYHEMOGLOBIN 5.1 % (0-4); BLOOD GAS HCO3 35 mmol/L (22-26); BLOOD GAS METHEMOGLOBIN 0.9 % (0-2); BLOOD GAS O2 HGB SATURATION 89 % (90-100); BLOOD GAS OXYGEN CONTENT 18.7 Vol % (12.0-20.0); BLOOD GAS PCO2 68 mmHG (38-42); BLOOD GAS PO2 82 mmHG (61-120); TEMP CORR TO 98.6
[2017-01-21 19:44] LABS: ALT (GPT) 19 U/L (12-78); AST (GOT) 19 U/L (15-37); GLOMERULAR FILTRATION RATE 109 ML/MIN (>89)
[2017-01-21 19:45] LABS: TOTAL BILIRUBIN ADULT 0.4 MG/DL (0.2-1.0)
[2017-01-21 19:45] LABS: CRITICAL VALUE YES; DRAW SITE RT RADIAL; LITER FLOW 2 L/M; NUMBER OF ARTERIAL PUNCTURES 1; OXYGEN DEVICE NASAL CANNULA; STAT YES; ULNAR PULSE PRESENT
[2017-01-21 19:47] LABS: ALKALINE PHOSPHATASE 90 U/L (45-117)
[2017-01-21 19:53] LABS: ALCOHOL 137 MG/DL (0-5)
[2017-01-21] MEDS ORDERED: FUROSEMIDE 20 MG/2 ML VIAL IV PUSH ONE (20:00)
[2017-01-21] MEDS ORDERED: POTASSIUM CHLORIDE 20 MEQ CONTROLLED RELEASE TAB PO ONE ×2 (20:00→22:00)
--- NOTE | 2017-01-21 20:15 | RADRPT ---
EXAM DATE/TIME: 01/21/2017 19:30 [facility] COMPARISON: CHEST SINGLE AP, January 25, 2015, 18:44. CT PULMONARY ANGIOGRAM, August 19, 2016, 17:40. CHEST SINGLE AP, August 19, 2016, 17:54. INDICATIONS : Short of breath with bilateral lower extremity swelling. MEDICAL HISTORY : Chronic obstructive pulmonary disease. Congestive heart failure. SURGICAL HISTORY : None. ENCOUNTER: Initial ACUITY: 1 day PAIN SCORE: 0/10 LOCATION: Bilateral chest FINDINGS: The heart size is normal. The pulmonary arteries are enlarged centrally. There is increased density a t the lung bases bilaterally. The mid and upper lungs are relatively clear. There is linear suspected scarring in the right upper lobe. CONCLUSION: 1. Enlargement of the pulmonary arteries bilaterally likely from pulmonary hypertension. This finding was present previously. 2. Bibasilar areas of atelectasis or consolidation. 3. Stable scarring in the right upper lobe. Patrick Ramos MD on January 21, 2017 at 20:11 Board Certified Radiologist. This report was verified electronically.
[2017-01-21 21:04] LABS: BLOOD, URINE NEG (NEG); GLUCOSE,URINE NEG (NEG); KETONE, URINE NEG (NEG); NITRITE,URINE NEG (NEG); PH, URINE 6.5 (5.0-8.5)
[2017-01-21 21:12] LABS: COMMENT (UR) CULT NOT INDICATED; CULTURE IF INDICATED CULT NOT INDICATED; METHOD OF COLLECTION CLEAN CATCH; URINE COLOR STRAW (YELLW/STRAW); WBC, URINE 0-2 /hpf (0-5)
[2017-01-21] MEDS ORDERED: NALOXONE HCL 0.4 MG/ML AMP IV PUSH PRN (22:00)
[2017-01-21] MEDS ORDERED: RESP: ALBUTEROL 2.5 MG/IPRATROPIUM 0.5 MG NEB (PRN) NEB (22:00)
[2017-01-21] MEDS ORDERED: SODIUM CHLORIDE 0.9% FLUSH 10 ML FLUSH IV FLUSH PRN (22:00)
[2017-01-21] MEDS ORDERED: RESP: ALBUTEROL 2.5 MG/IPRATROPIUM 0.5 MG NEB (SCH) NEB (22:00)
[2017-01-22 01:40] VITALS: BP 122/76
[2017-01-22 05:27] LABS: AUTOMATED NEUTROPHIL # 4.1 TH/MM3 (1.8-7.7); BASOPHIL % 0.2 % (0.0-2.0); EOSINOPHIL % 0.2 % (0.0-4.0); HEMATOCRIT 45.8 % (39.0-51.0); HEMO FLAGS DIFF FINAL; LYMPH % 8.7 % (9.0-44.0); LYMPHOCYTE # 0.4 TH/MM3 (1.0-4.8); MEAN CORPUSCULAR HEMOGLOBIN 30.1 PG (27.0-34.0); MEAN CORPUSCULAR HGB CONC 32.7 % (32.0-36.0); MONO % 1.5 % (0.0-8.0); NEUT % 89.4 % (16.0-70.0); PLATELET COUNT 210 TH/MM3 (150-450); RED BLOOD COUNT 4.98 MIL/MM3 (4.50-5.90); RED CELL DISTRIBUTION WIDTH 13.8 % (11.6-17.2); WHITE BLOOD COUNT 4.6 TH/MM3 (4.0-11.0)
[2017-01-22 05:33] LABS: POTASSIUM 3.8 MEQ/L (3.5-5.1)
[2017-01-22 05:36] LABS: BICARBONATE 38.3 MEQ/L (21.0-32.0)
[2017-01-22 07:47] VITALS: O2SAT 93
[2017-01-22 08:00] VITALS: BP 157/101; PULSE 128; RESP 18; TEMP 97; O2SAT 94
[2017-01-22] MEDS ORDERED: SODIUM CHLORIDE 0.9% FLUSH 10 ML FLUSH IV FLUSH SCH (09:00)
[2017-01-22] MEDS ORDERED: FUROSEMIDE 40 MG/4 ML VIAL IV PUSH SCH (09:00)
[2017-01-22] MEDS ORDERED: METOPROLOL TARTRATE 50 MG TAB PO SCH (09:30)
[2017-01-22 12:00] VITALS: BP 154/102; PULSE 126; RESP 20; TEMP 98; O2SAT 94
--- NOTE | 2017-01-22 13:49 | HHI.HP ---
[facility] Service [facility] Primary Care Physician No Primary Care Physician Admission Diagnosis congestive heart failure, COPD with acute exacerbation, hypoxemia Diagnoses: (1) COPD (chronic obstructive pulmonary disease) (2) CHF (congestive heart failure) (3) Lower extremity edema (4) Noncompliance (5) Alcohol intoxication Travel History International Travel<30 Days: No Contact w/Intl Traveler <30 Da: No Traveled to Known Affected Are: No History of Present Illness This is a 56 year-old female with history of end-stage COPD on chronic oxygen, diastolic CHF, noncompliance with medications, who continues to smoke tobacco and drink alcohol daily who presented to the ER with several week history of lower extremity edema and progressive shortness of breath. The patient states that he has a chronic cough which is productive of clear sputum. The patient denies chest pain or palpitations. The patient was hospitalized in August 2016 for CHF exacerbation and at that time had a negative nuclear stress test. The patient has not followed up with his primary care physician since then. His primary care physician is Dr. Danielson. The patient ran out of all his medications. He states several days ago his left elbow is also swollen but that has resolved, he denied fall or pain. The patient states that he does not drive and has difficulty getting around. He is dependent on his son and friends for rides. In the emergency department his BNP was elevated at 1700 however chest x-ray was clear. ABG was indicative of chronic carbon dioxide retention and mild respiratory acidosis. The patient was treated with Lasix IV and DuoNeb's. This morning he states that his edema is better and he feels his breathing is back to baseline. Review of Systems Constitutional: DENIES: Fever, Chills Ears, nose, mouth, throat: DENIES: Throat pain, Odynophagia Respiratory: COMPLAINS OF: Cough, Sputum production, Shortness of breath Cardiovascular: COMPLAINS OF: Lower Extremity Edema, DENIES: Chest pain, Palpitations Gastrointestinal: DENIES: Nausea, Vomiting Genitourinary: DENIES: Hematuria, Dysuria Musculoskeletal: DENIES: Muscle aches, Neck pain Integumentary: DENIES: Pruritus, Rash Neurologic: DENIES: Abnormal gait, Headache Psychiatric: DENIES: Anxiety, Confusion Past Family Social History Past Medical History Alcohol abuse End-stage COPD History of seizures History of hyponatremia Chronic diastolic CHF Probable pulmonary hypertension with chronic cor pulmonale Allergies: Coded Allergies: No Known Allergies (Verified , 01/21/17) Family History Reviewed and noncontributory Social History Positive tobacco and alcohol use Physical Exam Vital Signs Vital Signs Date Time Temp Pulse Resp B/P (MAP) Pulse Ox O2 Delivery O2 Flow Rate FiO2 01/22/17 12:00 98.0 126 20 154/102 (119) 94 01/22/17 08:00 97.0 128 18 157/101 (119) 94 01/22/17 07:47 93 Nasal Cannula 2.00 01/22/17 01:40 122/76 (91) 01/21/17 23:19 01/21/17 22:10 98.4 108 20 123/89 (100) 94 Nasal Cannula 2.00 01/21/17 21:40 122 22 133/89 (104) 92 Nasal Cannula 2.00 01/21/17 21:10 114 22 119/96 (104) 92 Nasal Cannula 2.00 01/21/17 20:40 112 22 113/79 (90) 94 Nasal Cannula 2.00 01/21/17 20:10 118 22 109/76 (87) 96 Nasal Cannula 2.00 01/21/17 19:55 98.0 124 22 119/75 (90) 94 Nasal Cannula 2.00 01/21/17 19:41 97.7 114 22 99/78 (85) 96 Nasal Cannula 2.00 01/21/17 19:21 96 Nasal Cannula 2.00 01/21/17 19:20 117 22 98/79 (85) 96 Nasal Cannula 2.00 01/21/17 19:15 22 94 Nasal Cannula 2.00 01/21/17 19:01 97.6 105 24 85/66 (72) 94 Physical Exam GENERAL: Chronically ill-appearing lean male patient. SKIN: Warm and dry. HEAD: Normocephalic. EYES: No scleral icterus. No injection or drainage. NECK: Supple, trachea midline. No JVD or lymphadenopathy. CARDIOVASCULAR: Regular rate and rhythm without murmurs, gallops, or rubs. RESPIRATORY: Breath sounds equal bilaterally. Prolonged expiratory phase bilaterally without wheezing. No accessory muscle use. GASTROINTESTINAL: Abdomen soft, non-tender, nondistended. EXTREMITIES: 1+ pitting pedal edema. NEUROLOGICAL: Awake, alert, and oriented x 3. Non-focal. Laboratory Laboratory Tests Test 01/21/17 19:15 01/21/17 19:34 01/21/17 20:50 01/21/17 22:30 White Blood Count 10.8 Red Blood Count 5.43 Hemoglobin 16.6 Hematocrit 50.3 Mean Corpuscular Volume 92.7 Mean Corpuscular Hemoglobin 30.5 Mean Corpuscular Hemoglobin Concent 32.9 Red Cell Distribution Width 13.9 Platelet Count 255 Mean Platelet Volume 8.1 Neutrophils (%) (Auto) 56.3 Lymphocytes (%) (Auto) 25.4 Monocytes (%) (Auto) 12.2 Eosinophils (%) (Auto) 3.0 Basophils (%) (Auto) 3.1 Neutrophils # (Auto) 6.1 Lymphocytes # (Auto) 2.7 Monocytes # (Auto) 1.3 Eosinophils # (Auto) 0.3 Basophils # (Auto) 0.3 CBC Comment DIFF FINAL Differential Comment Blood Urea Nitrogen 12 Creatinine 0.74 Random Glucose 103 Total Protein 6.5 Albumin 2.7 Calcium Level 8.3 Alkaline Phosphatase 90 Aspartate Amino Transf (AST/SGOT) 19 Alanine Aminotransferase (ALT/SGPT) 19 Total Bilirubin 0.4 Sodium Level 135 Potassium Level 3.5 Chloride Level 94 Carbon Dioxide Level 34.0 Anion Gap 7 Estimat Glomerular Filtration Rate 109 Troponin I 0.04 0.03 B-Type Natriuretic Peptide 1702 Ethyl Alcohol Level 137 Blood Gas Puncture Site RT RADIAL Blood Gas Patient Temperature 98.6 Blood Gas HCO3 35 Blood Gas Base Excess 8.8 Blood Gas Oxygen Saturation 89 Arterial Blood pH 7.33 Arterial Blood Partial Pressure CO2 68 Arterial Blood Partial Pressure O2 82 Arterial Blood Oxygen Content 18.7 Arterial Blood Carboxyhemoglobin 5.1 Arterial Blood Methemoglobin 0.9 Blood Gas Hemoglobin 15.0 Oxygen Delivery Device NASAL CANNULA Blood Gas Liter Flow 2 Urine Collection Type CLEAN CATCH Urine Color STRAW Urine Turbidity CLEAR Urine pH 6.5 Urine Specific [place] 1.005 Urine Protein NEG Urine Glucose (UA) NEG Urine Ketones NEG Urine Occult Blood NEG Urine Nitrite NEG Urine Bilirubin NEG Urine Leukocyte Esterase NEG Urine WBC 0-2 Microscopic Urinalysis Comment CULT NOT INDICATED Urine Collection Time 2049 Total Creatine Kinase 130 Test 01/22/17 03:53 01/22/17 04:30 Total Creatine Kinase 83 Troponin I 0.03 White Blood Count 4.6 Red Blood Count 4.98 Hemoglobin 15.0 Hematocrit 45.8 Mean Corpuscular Volume 92.0 Mean Corpuscular Hemoglobin 30.1 Mean Corpuscular Hemoglobin Concent 32.7 Red Cell Distribution Width 13.8 Platelet Count 210 Mean Platelet Volume 8.4 Neutrophils (%) (Auto) 89.4 Lymphocytes (%) (Auto) 8.7 Monocytes (%) (Auto) 1.5 Eosinophils (%) (Auto) 0.2 Basophils (%) (Auto) 0.2 Neutrophils # (Auto) 4.1 Lymphocytes # (Auto) 0.4 Monocytes # (Auto) 0.1 Eosinophils # (Auto) 0.0 Basophils # (Auto) 0.0 CBC Comment DIFF FINAL Differential Comment Blood Urea Nitrogen 10 Creatinine 0.58 Random Glucose 182 Calcium Level 8.3 Sodium Level 136 Potassium Level 3.8 Chloride Level 92 Carbon Dioxide Level 38.3 Anion Gap 6 Estimat Glomerular Filtration Rate 144 Result Diagram: 01/22/1742901/22/17429 Imaging Last Impressions Chest X-Ray 01/21/171914 Signed Impressions: Service Date/Time: Saturday, January 21, 2017 19:30 - CONCLUSION: 1. Enlargement of the pulmonary arteries bilaterally likely from pulmonary hypertension. This finding was present previously. 2. Bibasilar areas of atelectasis or consolidation. 3. Stable scarring in the right upper lobe. MD Joan Cazares VTE Risk Assessment Caprini VTE Risk Assessment: Mod/High Risk (score >= 2) Caprini Risk Assessment Model Point Value = 1 Point Value = 2 Point Value = 3 Point Value = 5 Age 41-60 Minor surgery BMI > 25 kg/m2 Swollen legs Varicose veins or History of unexplained or recurrent spontaneous Oral contraceptives or hormone replacement Sepsis (< 1 month) Serious lung disease, including pneumonia (< 1 month) Abnormal pulmonary function Acute myocardial infarction Congestive heart failure (< 1 month) History of inflammatory bowel disease Medical patient at bed rest Age 61-74 Arthroscopic surgery Major open surgery (> 45 min) Laparoscopic surgery (> 45 min) Malignancy Confined to bed (> 72 hours) Immobilizing plaster cast Central venous access Age >= 75 History of VTE Family history of VTE Factor V Leiden Prothrombin [id number] Lupus anticoagulant Anticardiolipin antibodies Elevated serum homocysteine Heparin-induced thrombocytopenia Other congenital or acquired thrombophilia Stroke (< 1 month) Elective arthroplasty Hip, pelvis, or leg fracture Acute spinal cord injury (< 1 month) Prophylaxis Regimen Total Risk Factor Score Risk Level Prophylaxis Regimen 0-1 Low Early ambulation 2 Moderate Order ONE of the following: *Sequential Compression Device (SCD) *Heparin 5000 units SQ BID 3-4 Higher Order ONE of the following medications: *Heparin 5000 units SQ TID *Enoxaparin/Lovenox 40 mg SQ daily (WT < 150 kg, CrCl > 30 mL/min) *Enoxaparin/Lovenox 30 mg SQ daily (WT < 150 kg, CrCl > 10-29 mL/min) *Enoxaparin/Lovenox 30 mg SQ BID (WT < 150 kg, CrCl > 30 mL/min) AND/OR *Sequential Compression Device (SCD) 5 or more Highest Order ONE of the following medications: *Heparin 5000 units SQ TID (Preferred with Epidurals) *Enoxaparin/Lovenox 40 mg SQ daily (WT < 150 kg, CrCl > 30 mL/min) *Enoxaparin/Lovenox 30 mg SQ daily (WT < 150 kg, CrCl > 10-29 mL/min) *Enoxaparin/Lovenox 30 mg SQ BID (WT < 150 kg, CrCl > 30 mL/min) AND *Sequential Compression Device (SCD) Assessment and Plan Assessment and Plan -Chronic diastolic CHF, noncompliant with medications. Resumed on Lasix and metoprolol. He had an echocardiogram in August 2016 that showed preserved ejection fraction. He had a negative nuclear stress test at that time. The patient did not follow-up with his primary care physician and ran out of his medications. The patient presented for pedal edema and dyspnea. Both have improved status post IV Lasix. -COPD with chronic respiratory failure on home oxygen. No wheezing on exam. Patient is stable for outpatient management at this time. I encouraged him to get his medications filled at the pharmacy and have given him refills. I encouraged him to call his primary care physician and make an appointment. Patient also encouraged to stop drinking alcohol and smoking tobacco. Allie Robles MD Jan 22, 2017 13:49
[2017-01-22] MEDS ORDERED: POTA-163 PO (13:53)
[2017-01-22] MEDS ORDERED: FURO40TA PO (13:53)
[2017-01-22] MEDS ORDERED: MEDR4PAK PO (13:53)
[2017-01-22] MEDS ORDERED: SPIRCAP INH (13:53)
[2017-01-22] MEDS ORDERED: VENTAER INH (13:53)
[2017-01-22] MEDS ORDERED: METO-309 PO (13:53)
[2017-01-22] MEDS ORDERED: ZITHTAB PO (13:54)
--- NOTE | 2017-01-22 14:41 | EKG ---
Date Performed: 01/21/2017 Time Performed: 22:37:53 PTAGE: 56 years EKG: Sinus rhythm with frequent PACs RIGHT VENTRICULAR HYPERTROPHY AND ST-T CHANGE ABNORMAL ECG PREVIOUS TRACING : 08/20/[address] changes may be due to hypertrophy or ischemia . Compared to prior tracing no significant change. DOCTOR: Douglas Jones Interpretating Date/Time 01/22/2017 14:37:01
--- NOTE | 2017-01-22 14:44 | EKG ---
Date Performed: 01/22/2017 Time Performed: 04:06:18 PTAGE: 56 years EKG: Sinus tachycardia with frequent PACs and a short atrial run INDETERMINATE AXIS PATTERN CONS ISTENT WITH PULMONARY DISEASE POSSIBLE RIGHT VENTRICULAR CONDUCTION DELAY ST DEVIATION AND MODERATE T -WAVE ABNORMALITY, CONSIDER ANTERIOR ISCHEMIA ABNORMAL ECG PREVIOUS TRACING : 01/21/2017 22.37 Since prior tracing, atrial ectopy has increased. DOCTOR: Douglas Jones Interpretating Date/Time 01/22/2017 14:38:17
[2017-01-23] MEDS ORDERED: FUROSEMIDE 40 MG TAB PO SCH (09:00)
== END 2017-01-22 15:40 | disposition home or self-care (01) ==
LOC: PHED 18:48 → PHEDA 21:55 → PH3B 23:16
PROVIDERS: ADMIT Family Medicine; ATTEND Family Medicine
DX: J44.1 Chronic obstructive pulmonary disease with (acute) exacerbation (principal); I50.9 Heart failure, unspecified; M79.89 Other specified soft tissue disorders; F17.200 Nicotine dependence, unspecified, uncomplicated; Z91.19 Patient's noncompliance with other medical treatment and regimen; Z99.81 Dependence on supplemental oxygen
CPT/HCPCS: 36600; 71010; 80048; 80053; 80307; 81001; 82550; 82805; 83880; 84484; 85025; 93005; 94640; 94664; 96374; 96376; 97162; 99285; G0378; G8987; G8988; J1940; J2930